=== PATIENT | female | born 1940 | race American Indian/Alaskan Native ===

== ENCOUNTER 2018-02-11 20:57 | Emergency (ER) | payer MEDICARE, OTHER ==
[2018-02-11 20:58] VITALS: BMI 16.6
[2018-02-11 21:06] VITALS: O2SAT 100
--- NOTE | 2018-02-11 21:18 | C.PDOC ---
History Of Present Illness 77 year old female presents to the ED complaining of decreased urination requesting urinary catheter placement until her Urology appointment with Dr. Oshea. Patient denies any fever, chills, nausea, vomiting. Time Seen by Provider: 02/11/18 21:17 Chief Complaint (Nursing): Female Genitourinary History Per: Patient History/Exam Limitations: no limitations Onset/Duration Of Symptoms: Days Current Symptoms Are (Timing): Still Present Severity: Mild Associated Symptoms: Urinary Symptoms. denies: Fever, Nausea, Vomiting Recent travel outside of the [place]: No Abnormal Vaginal Bleeding: No Past Medical History Reviewed: Historical Data, Nursing Documentation, Vital Signs Vital Signs: Last Vital Signs Temp 97.8 F 02/11/18 21:02 Pulse 92 H 02/11/18 21:02 Resp 16 02/11/18 21:02 BP 163/77 H 02/11/18 21:02 Pulse Ox 100 02/11/18 22:38 - Medical History PMH: Anxiety, Asthma (Never been hospitalized), Fractures (FINGER NO SURGERY), Gastritis, HTN, Migraine, Seizures (last 03/06/15) Denies: Chronic Kidney Disease Surgical History: CABG Family History: States: No Known Family Hx - Social History Hx Alcohol Use: No Hx Substance Use: No - Immunization History Hx Influenza Vaccination: Yes Hx Pneumococcal Vaccination: No Review Of Systems Constitutional: Negative for: Fever, Chills Gastrointestinal: Negative for: Nausea, Vomiting Genitourinary: Positive for: Other (Decreased urination ) Physical Exam - Physical Exam Appears: Non-toxic Skin: Warm, Dry Oral Mucosa: Moist Chest: Symmetrical Cardiovascular: Rhythm Regular Respiratory: No Rales, No Rhonchi Gastrointestinal/Abdominal: Tenderness (Suprapubic tenderness ), Distention, No Guarding, No Rebound Back: Normal Inspection, No CVA Tenderness Extremity: Normal ROM Extremity: Bilateral: Normal Color And Temperature Neurological/Psych: Oriented x3 Gait: Steady ED Course And Treatment O2 Sat by Pulse Oximetry: 100 (RA) Pulse Ox Interpretation: Normal Progress Note: I've placed an16 estonian edmonds catheter without difficulty. Patient tolerated procedure well. 600 cc of clear urine drained. Pt feels much better Reevaluation Time: 22:43 Reassessment Condition: Improved Disposition Counseled Patient/Family Regarding: Studies Performed, Diagnosis, Need For Followup - Disposition Referrals: Elham Oshea MD [Staff Provider] - Disposition: HOME/ ROUTINE Disposition Time: 21:18 Condition: FAIR Instructions: How to Care for Your Edmonds Catheter, Female, Edmonds Catheter, Female Forms: [employer] (Urdu) - Clinical Impression Clinical Impression: Urinary retention - Scribe Statement The provider has reviewed the documentation as recorded by the Scribe Kera Gregory
[2018-02-11 23:09] VITALS: BP 144/86; PULSE 82; RESP 20; TEMP 96
== END 2018-02-11 23:08 | disposition home or self-care (01) ==
LOC: C.ER 20:57
DX: R33.9 Retention of urine, unspecified (principal)

== ENCOUNTER 2018-02-12 02:27 | Emergency (ER) | payer MEDICARE, OTHER ==
[2018-02-12 02:27] VITALS: BMI 16.6
[2018-02-12 02:59] VITALS: BP 167/68; PULSE 68; TEMP 97.6; O2SAT 100
--- NOTE | 2018-02-12 03:22 | C.PDOC ---
History Of Present Illness 77 year old female presents to the ED complaining of inability to urinate properly status post placement of edmonds catheter. Patient states she just had a Edmonds catheter placed and the leg bag was not emptied out. She denies any fever , chills, nausea, or vomiting. Time Seen by Provider: 02/12/18 03:22 Chief Complaint (Nursing): Female Genitourinary History Per: Patient History/Exam Limitations: no limitations Onset/Duration Of Symptoms: Hrs Current Symptoms Are (Timing): Still Present Severity: Mild Pain Scale Rating Of: 2 Quality Of Discomfort: Dull Associated Symptoms: Urinary Symptoms. denies: Fever, Chills, Nausea, Vomiting Recent travel outside of the [place]: No Additional History Per: Patient Abnormal Vaginal Bleeding: No Past Medical History Reviewed: Historical Data, Nursing Documentation, Vital Signs Vital Signs: Last Vital Signs Temp 97.6 F 02/12/18 02:43 Pulse 68 02/12/18 02:43 Resp 18 02/12/18 03:39 BP 167/68 H 02/12/18 02:43 Pulse Ox 100 02/12/18 06:11 - Medical History PMH: Anxiety, Asthma (Never been hospitalized), Fractures (FINGER NO SURGERY), Gastritis, HTN, Migraine, Seizures (last 03/06/15) Denies: Chronic Kidney Disease Surgical History: CABG Family History: States: No Known Family Hx - Social History Hx Alcohol Use: No Hx Substance Use: No - Immunization History Hx Influenza Vaccination: Yes Hx Pneumococcal Vaccination: No Review Of Systems Constitutional: Negative for: Fever, Chills Gastrointestinal: Negative for: Nausea, Vomiting Genitourinary: Positive for: Other (Inability to urinate properly) Physical Exam - Physical Exam Appears: Non-toxic, No Acute Distress Skin: Warm, Dry Gastrointestinal/Abdominal: Soft, No Tenderness, No Distention, Other (Edmonds catheter in place and draining ) Back: No CVA Tenderness Extremity: Normal ROM Neurological/Psych: Oriented x3 Gait: Steady ED Course And Treatment O2 Sat by Pulse Oximetry: 100 (RA) Pulse Ox Interpretation: Normal Progress Note: Leg bag was emptied out. Patient feels relieved after procedure and reports feeling better. Disposition Counseled Patient/Family Regarding: Studies Performed, Diagnosis, Need For Followup - Disposition Referrals: Elham Oshea MD [Staff Provider] - Disposition: HOME/ ROUTINE Disposition Time: 03:22 Condition: FAIR Instructions: How to Care for Your Edmonds Catheter, Female Forms: [facility] (Marshallese) - Clinical Impression Clinical Impression: Edmonds catheter problem - Scribe Statement The provider has reviewed the documentation as recorded by the Scribe Kera Gregory All medical record entries made by the Scribe were at my direction and personally dictated by me. I have reviewed the chart and agree that the record accurately reflects my personal performance of the history, physical exam, medical decision making, and the department course for this patient. I have also personally directed, reviewed, and agree with the discharge instructions and disposition.
[2018-02-12] MEDS ORDERED: Magnesium Citrate Oral SOL (300 ml) PO ONE (03:27)
[2018-02-12] MEDS ORDERED: Magnesium Citrate Oral SOL (300 ml) ONE (03:29)
[2018-02-12 03:47] VITALS: RESP 18
== END 2018-02-12 03:39 | disposition home or self-care (01) ==
LOC: C.ER 02:27
DX: T83.091A Other mechanical complication of indwelling urethral catheter, initial encounter (principal); Y84.8 Other medical procedures as the cause of abnormal reaction of the patient, or of later complication, without mention of misadventure at the time of the procedure; Y92.89 Other specified places as the place of occurrence of the external cause

== ENCOUNTER 2018-03-08 05:52 | Day surgery (SDC) | payer MEDICARE, OTHER ==
[2018-02-04 09:40] VITALS: BMI 16.6
[2018-03-08] MEDS ORDERED: Propofol 10 mg/ml Inj (20 ML) ONE (07:41)
[2018-03-08] MEDS ORDERED: cefTRIAXone 1 gm 1 GM/100 ML BAG IVPB ONE (07:43)
[2018-03-08] MEDS ORDERED: Iohexol 240 (50 ml) ONE (07:43)
[2018-03-08] MEDS ORDERED: Gentamicin 160 MG in Sodium Chloride 0.9% 100 ML IVPB ONE (07:45)
[2018-03-08] MEDS ORDERED: Etomidate 20 mg/10ml Inj IV ONE (08:28)
[2018-03-08] MEDS ORDERED: Lactated Ringer's 1,000 ML IV SCH (08:30)
--- NOTE | 2018-03-08 08:34 | PCM.SURG1 ---
Surgeon's Initial Post Op Note - Surgeon's Notes Surgeon: Hydronephrosis. UTI. Retention University Professor: none Type of Anesthesia: General LMA Pre-Operative Diagnosis: Bladder tumor. Pelvic mass Operative Findings: same. Tumor on trigone and bladder floor Post-Operative Diagnosis: same Operation Performed: cysto, attempted rtg pyelogram. TURBT. EUA Specimen/Specimens Removed: bladder tumor Estimated Blood Loss: EBL {In ML}: 10 Blood Products Given: N/A Post-Op Condition: Good Date of Surgery/Procedure: 03/08/18 Time of Surgery/Procedure: 08:34
[2018-03-08 10:55] VITALS: RESP 18
[2018-03-08 11:55] VITALS: BP 117/79; PULSE 89; TEMP 97.7; O2SAT 97
--- NOTE | 2018-03-08 12:34 | RAD ---
Date of service: 03/08/2018 HISTORY: HYDRONEPHROSIS AND UTI COMPARISON: No prior. FINDINGS: BOWEL: Normal bowel gas pattern. Multiple calcifications lateral to the L1-2 intervertebral disc space level left upper quadrant calcifications correspond to left renal vascular calcifications as seen on CT examination of 02/05/2018. No other significant abnormal intra-abdominal calcifications are appreciated. BONES: Normal. OTHER FINDINGS: None. IMPRESSION: No active disease.
--- NOTE | 2018-03-12 03:04 | OP ---
Copied To: Elham Oshea MD Attending MD: Elham Oshea MD PROCEDURE DATE: 03/08/2018 UROLOGY OPERATIVE REPORT PREOPERATIVE DIAGNOSES: Recurrent urinary tract infection, hydronephrosis, and hematuria. POSTOPERATIVE DIAGNOSES: Recurrent urinary tract infection, hydronephrosis, and hematuria. PROCEDURES: Cystoscopy, attempted retrograde pyelogram, transurethral resection of bladder tumor, examination under anesthesia. OPERATING SURGEON: Elham Oshea MD Primary Education Professor film of the abdomen was obtained. The patient was placed in lithotomy position. Genitalia were prepped and draped sterilely. Anesthesia was applied by the anesthesiologist. A 22-Maltese cystoscope sheath was introduced with obturator. The urine was drained and sent for bacteriologic and cytologic examination. The bladder was inspected. The urethra was normal. There was noted to be a bladder tumor involving the floor. There is a necrotic tumor with much debris. These appeared to have some calcifications. The debris was attempted to be irrigated free. The abnormal tissue appeared solid. The lateral caldwell and the anterior wall of the bladder were normal. The floor of the bladder including the trigone was not normal. Attempted performing retrograde pyelogram was performed with ureteral catheter. However, the ureteral orifices could not be identified left side. The cystoscope and sheath were removed. The 26-Maltese continuous flow resectoscope sheath was introduced with obturator. The resectoscope was inserted. The tumor was resected. Still, the ureteral orifices could not be found during the resection. The tumor appeared to have necrotic areas. The tumor perhaps has solid areas. There were no typical papillary bladder tumors identified. The specimens were removed using the Mar syringe as well as the resectoscope loop. Hemostasis was achieved using electrocautery. Hemostasis was complete. Further attempts of inserting ureteral catheters were performed; however, the ureteral orifice could not be identified. The cystoscope was removed. A Camp catheter was inserted. Bladder drainage was clear. Exam under anesthesia was performed. There was evidence of mobile pelvic mass. The mass was approximately 4 cm in size and was palpable and mobile without fixation. The patient was returned to supine position. The patient tolerated the procedure without complication. Elham Oshea MD
== END 2018-03-08 11:55 | disposition home or self-care (01) ==
LOC: C.SDS 05:52
PROVIDERS: ATTEND Urology
DX: C67.0 Malignant neoplasm of trigone of bladder (principal); N13.6 Pyonephrosis; N13.30 Unspecified hydronephrosis; R31.0 Gross hematuria
CPT/HCPCS: 52235; 74018; 88305; C1758; J0696; J1580

== ENCOUNTER 2018-06-07 12:03 | Inpatient (IN) | payer MEDICARE, OTHER ==
[2018-06-07 12:15] VITALS: BMI 15.7
[2018-06-07] MEDS ORDERED: Sodium Chloride 0.9% 500 ML IV ONE ×5 (12:46→16:55)
[2018-06-07] MEDS ORDERED: Lidocaine 2% Jelly (Uro-Jet) TOP ONE ×2 (12:56)
--- NOTE | 2018-06-07 13:25 | C.PDOC ---
History Of Present Illness 77 year old female presents to the ED complaining of dysuria and burning pain at the urethra, ongoing for 1 year but worsening recently. Patient reports PMHx of bladder cancer, and is followed by urologist Dr. Gabrielle Oshea. She denies any fever, vomiting, diarrhea, abdominal pain, or vaginal bleeding. Patient does report small urinary volumes recently. Patient is getting weekly chemotherapy every sunday, last chemo was 05/29/18. PMD- previously Dr. Garcia, currently none urology - Dr. Elham Oshea Hem/onfc - Dr. Proctor Time Seen by Provider: 06/07/18 12:43 Chief Complaint (Nursing): Female Genitourinary History Per: Patient History/Exam Limitations: no limitations Onset/Duration Of Symptoms: Days Current Symptoms Are (Timing): Worse Quality Of Discomfort: Burning Associated Symptoms: Urinary Symptoms Past Medical History Reviewed: Historical Data, Nursing Documentation, Vital Signs Vital Signs: Last Vital Signs Temp 97.5 F L 06/07/18 12:29 Pulse 126 H 06/07/18 12:16 Resp 17 06/07/18 12:16 BP 87/62 L 06/07/18 12:16 Pulse Ox 99 06/07/18 12:16 - Medical History PMH: Anxiety, Asthma, Fractures (FINGER), Gastritis, HTN, Migraine, Seizures Denies: Chronic Kidney Disease Surgical History: CABG Family History: States: Unknown Family Hx - Social History Hx Alcohol Use: No Hx Substance Use: No - Immunization History Hx Tetanus Toxoid Vaccination: No Hx Influenza Vaccination: No Hx Pneumococcal Vaccination: No Review Of Systems Constitutional: Negative for: Fever, Chills Gastrointestinal: Negative for: Vomiting, Abdominal Pain, Diarrhea Genitourinary: Positive for: Dysuria, Other (Burning pain to urethra). Negative for: Vaginal Bleeding Skin: Negative for: Rash Physical Exam - Physical Exam Appears: No Acute Distress, Chronically Ill, Other (Cachectic) Skin: Warm, Dry Head: Atraumatic, Normacephalic Eye(s): bilateral: Normal Inspection, PERRL, EOMI Oral Mucosa: Moist Neck: Normal ROM Chest: Symmetrical Cardiovascular: Rhythm Regular (but tachycardic) Respiratory: No Rales, No Rhonchi, No Wheezing, Other (Lungs clear to auscultation bilaterally) Gastrointestinal/Abdominal: Bowel Sounds (normal), Soft, No Tenderness, No Distention Pelvic: Other (External exam: urethra opening appears swollen and irritated, no vesicular lesions) Extremity: Bilateral: Atraumatic, Normal Color And Temperature Neurological/Psych: Oriented x3, Normal Speech ED Course And Treatment - Laboratory Results Result Diagrams: 06/07/18 14:01 06/07/18 14:01 O2 Sat by Pulse Oximetry: 99 (RA) Pulse Ox Interpretation: Normal - Radiology CXR: Viewed By Me, Read By Radiologist CXR Interpretation: Yes: No Acute Disease - CT Scan/US CT Abd/Pelvis Other Rad Studies (CT/US): Read By Radiologist CT/US Interpretation: Accession No. : [id number]. Patient Name / ID : LUIS GEORGES / [id number]. Exam Date : 06/07/2018 15:31:58 ( Approved ). Study Comment : Sex / Age : F / 77Y. Creator : Alexa Kulkarni. Dictator : Osmin Murillo MD. Rn Training : [employer] Laminator : Osmin Murillo MD. Approver2 : Report Date : 06/07/2018 15:37:48. My Comment : . Date of service: 06/07/2018. PROCEDURE: CT Abdomen and Pelvis without intravenous contrast. HISTORY: PELVIC PAIN, BLADDER CA. COMPARISON: 04/04/2018. TECHNIQUE: Without contrast.. Contrast dose: 0. Radiation dose: Total exam DLP = 165.74 mGy-cm. This CT exam was performed using one or more of the following dose reduction techniques: Automated exposure control, adjustment of the mA and/or kV according to patient size, and/or use of iterative reconstruction technique. FINDINGS: LOWER THORAX: No infiltrate/effusion. Status post CABG. 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 LIVER: Unremarkable. No gross lesion or ductal dilatation. GALLBLADDER AND BILE DUCTS: Status post cholecystectomy. PANCREAS: Unremarkable. No gross lesion or ductal dilatation. SPLEEN: Unremarkable. ADRENALS: Unremarkable. No mass. KIDNEYS AND URETERS: Bilateral hydroureteronephrosis. Point of obstruction likely related to known pelvic mass. VASCULATURE: As above, aneurysmal dilatation of distal thoracic/proximal abdominal aorta. Atherosclerotic calcification of the abdominal aorta. BOWEL: Unremarkable. No obstruction. No gross mural thickening. APPENDIX: Not positive identified. No secondary findings to suggest appendicitis. PERITONEUM: No ascites or pneumoperitoneum. LYMPH NODES: Unremarkable. No enlarged lymph nodes. BLADDER: Diffuse thickening of the bladder wall. Soft tissue mass in the posterior bladder. Posterior border of the bladder is not well demarcated on this noncontrast examination. There is some high attenuation material seen dependently within the urinary bladder, possibly representing blood products. Please correlate with urinalysis. REPRODUCTIVE: Postmenopausal uterus. Because of the presence of this bladder mass the uterus is difficult to distinguish from surrounding soft tissue. There is question of either posterior bladder diverticulum or necrotic mass communicating with the bladder lumen. This is better demonstrated on prior CT of 04/04/2018. there are coarse extra uterine calcifications seen in the inferior adnexal region bilaterally. Unchanged from prior examinations. Uncertain significance. BONES: No acute fracture. OTHER FINDINGS: None. IMPRESSION: Suspected neoplasm posterior wall of urinary bladder with diffuse bladder wall thickening. Question raised of either necrotic mass with communication to bladder lumen or posterior bladder diverticulum. Possible blood products within urinary bladder lumen. Correlate with urinalysis. Bilateral hydroureteronephrosis. 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 Progress Note: Routine blood work, UA, and blood cultures ordered and reviewed. Administered 500mL NS IV fluids and applied topical Lidocaine 2%. Labs reviewed, showing bandemia. Hx of bladder CA, CT abdomen/pelvis ordered. 4:25- Discussed patient with drug counselor, patient's vitals improved and lactate decreased. He is in agreement that patient is now stable for telemetry. Disposition - Disposition Forms: [employer] (South Korean) - Scribe Statement The provider has reviewed the documentation as recorded by the Krista Albarado Provider Attestation: All medical record entries made by the Belgicaibjose d were at my direction and perso juan dictated by me. I have reviewed the chart and agree that the record accurately reflects my personal performance of the history, physical exam, medical decision making, and the department course for this patient. I have also personally directed, reviewed, and agree with the discharge instructions and disposition.
[2018-06-07 14:13] LABS: BASO % 0.5 % (0.0-2.0); EOS % 0.6 % (0.0-4.0); HEMOGLOBIN 8.8 g/dL (11.0-16.0); LYMPH # 0.3 K/uL (1.0-4.3); LYMPH % 26.5 % (20.0-40.0); MEAN CELL VOLUME 77.1 fL (81.0-99.0); MEAN CORPUSCULAR HEMOGLOBIN 24.8 pg (27.0-31.0); MEAN CORPUSCULAR HGB CONC 32.1 g/dL (33.0-37.0); MONO # 0.2 K/uL (0.0-0.8); MONO % 19.5 % (0.0-10.0); NEUT # 0.6 K/uL (1.8-7.0); NEUT % 52.9 % (50.0-75.0); NRBC % 21.6 % (0.0-2.0); RBC 3.54 Mil/uL (3.80-5.20); RED CELL DISTRIBUTION WIDTH 19.6 % (11.5-14.5)
[2018-06-07 14:17] LABS: VENOUS BLOOD GAS BASE EXCESS -4.3 mmol/L (0.0-2.0); VENOUS BLOOD GAS PCO2 42 mmHg (40-60); VENOUS BLOOD GAS PO2 13 mm/Hg (30-55); VENOUS BLOOD PH 7.32 (7.32-7.43)
[2018-06-07 14:17] LABS: PLATELET COUNT 10 K/uL (130-400); WHITE BLOOD COUNT 1.2 K/uL (4.8-10.8)
[2018-06-07] MEDS ORDERED: Vancomycin 1 GM 1 GM/250 ML BAG IV STA (14:17)
[2018-06-07] MEDS ORDERED: Cefepime 1 GM in Sodium Chloride 0.9% 50 ML IVPB ONE (14:18)
[2018-06-07] MEDS ORDERED: Moxifloxacin IV 400mg/250ml NS 400 MG/250 ML BAG IV ONE (14:18)
[2018-06-07 14:20] LABS: ALB/GLOB RATIO 0.9 (1.0-2.1); ALBUMIN 3.5 g/dL (3.5-5.0); CALCIUM 9.4 mg/dl (8.6-10.4)
[2018-06-07 14:24] LABS: INR 1.4
[2018-06-07] MEDS ORDERED: Moxifloxacin IV 400mg/250ml NS 400 MG/250 ML BAG IVPB ONE (14:44)
[2018-06-07 14:47] LABS: SQUAMOUS EPITHIAL 2 /hpf (0-5); URINE BACTERIA RARE (<OCC); URINE BILIRUBIN NEGATIVE (NEGATIVE); URINE BLOOD NEGATIVE (NEGATIVE); URINE CLARITY Clear (Clear); URINE COLOR Yellow (YELLOW); URINE GLUCOSE (UA) NORMAL (Normal); URINE LEUKOCYTE ESTERASE NEG Leu/uL (Negative); URINE PROTEIN 1+ mg/dL (NEGATIVE)
--- NOTE | 2018-06-07 14:57 | RAD ---
Date of service: 06/07/2018 PROCEDURE: CHEST RADIOGRAPH, 1 VIEW HISTORY: possible sepsis COMPARISON: Comparison is made with 02/04/2018 FINDINGS: LUNGS: No evidence of new infiltrate or consolidation in the lungs. PLEURA: No pneumothorax or pleural fluid seen. CARDIOVASCULAR: No aortic atherosclerotic calcification present. Status post sternotomy. OSSEOUS STRUCTURES: No significant abnormalities. VISUALIZED UPPER ABDOMEN: Normal. OTHER FINDINGS: Right-sided Infusaport is seen in place. IMPRESSION: No evidence of acute pulmonary disease.
[2018-06-07 15:39] LABS: LYMPHOCYTE 31 % (20-40); MONOCYTE 18 % (0-10); NEUTROPHIL 34 % (50-75); TOTAL CELLS COUNTED 100
[2018-06-07 15:40] LABS: NUCLEATED RED BLOOD CELL 19 % (0-0)
[2018-06-07 15:41] LABS: BANDS 17 % (0-2); PLATELET ESTIMATE MARKEDLY DECREASED (NORMAL)
[2018-06-07 15:42] LABS: ANISOCYTOSIS SLIGHT; HYPOCHROMIC SLIGHT; POLYCHROMIC SLIGHT; TARGET CELLS SLIGHT
[2018-06-07 15:43] LABS: OVALOCYTES SLIGHT
[2018-06-07 16:11] LABS: VENOUS BLOOD GAS BASE EXCESS -4.9 mmol/L (0.0-2.0); VENOUS BLOOD GAS PCO2 39 mmHg (40-60); VENOUS BLOOD GAS PO2 34 mm/Hg (30-55); VENOUS BLOOD PH 7.33 (7.32-7.43)
--- NOTE | 2018-06-07 16:20 | CT ---
Date of service: 06/07/2018 PROCEDURE: CT Abdomen and Pelvis without intravenous contrast HISTORY: PELVIC PAIN, BLADDER CA COMPARISON: 04/04/2018 TECHNIQUE: Without contrast.. Contrast dose: 0 Radiation dose: Total exam DLP = 165.74 mGy-cm. This CT exam was performed using one or more of the following dose reduction techniques: Automated exposure control, adjustment of the mA and/or kV according to patient size, and/or use of iterative reconstruction technique. FINDINGS: LOWER THORAX: No infiltrate/effusion. Status post CABG. 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 LIVER: Unremarkable. No gross lesion or ductal dilatation. GALLBLADDER AND BILE DUCTS: Status post cholecystectomy PANCREAS: Unremarkable. No gross lesion or ductal dilatation. SPLEEN: Unremarkable. ADRENALS: Unremarkable. No mass. KIDNEYS AND URETERS: Bilateral hydroureteronephrosis. Point of obstruction likely related to known pelvic mass. VASCULATURE: As above, aneurysmal dilatation of distal thoracic/proximal abdominal aorta. Atherosclerotic calcification of the abdominal aorta. BOWEL: Unremarkable. No obstruction. No gross mural thickening. APPENDIX: Not positive identified. No secondary findings to suggest appendicitis. PERITONEUM: No ascites or pneumoperitoneum. LYMPH NODES: Unremarkable. No enlarged lymph nodes. BLADDER: Diffuse thickening of the bladder wall. Soft tissue mass in the posterior bladder. Posterior border of the bladder is not well demarcated on this noncontrast examination. There is some high attenuation material seen dependently within the urinary bladder, possibly representing blood products. Please correlate with urinalysis. REPRODUCTIVE: Postmenopausal uterus. Because of the presence of this bladder mass the uterus is difficult to distinguish from surrounding soft tissue. There is question of either posterior bladder diverticulum or necrotic mass communicating with the bladder lumen. This is better demonstrated on prior CT of 04/04/2018. there are coarse extra uterine calcifications seen in the inferior adnexal region bilaterally. Unchanged from prior examinations. Uncertain significance. BONES: No acute fracture. OTHER FINDINGS: None. IMPRESSION: Suspected neoplasm posterior wall of urinary bladder with diffuse bladder wall thickening. Question raised of either necrotic mass with communication to bladder lumen or posterior bladder diverticulum. Possible blood products within urinary bladder lumen. Correlate with urinalysis. Bilateral hydroureteronephrosis. 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 At
[2018-06-07] MEDS ORDERED: Sodium Chloride 0.9% 1,500 ML IV ONE (16:33)
[2018-06-07] MEDS ORDERED: Lidocaine 2% Jelly (Uro-Jet) ONE (17:59)
[2018-06-07] MEDS: Meropenem 500 MG in Sodium Chloride 0.9% 100 ML IVPB SCH (22:07)
--- NOTE | 2018-06-07 23:54 | CP.PCM.HP ---
Past Patient History - Infectious Disease Hx of Infectious Diseases: None - Past Medical History & Family History Past Medical History?: Yes - Past Social History Smoking Status: Former Smoker - CARDIAC Hx Hypertension: Yes - PULMONARY Hx Asthma: Yes - NEUROLOGICAL Hx Migraine: Yes Hx Seizures: Yes - HEENT Hx HEENT Problems: Yes Hx Cataracts: Yes (BILAT IOL) - RENAL Hx Chronic Kidney Disease: No - ENDOCRINE/METABOLIC Hx Endocrine Disorders: No - HEMATOLOGICAL/ONCOLOGICAL Hx Blood Disorders: Yes Hx Cancer: Yes (CERVICAL 4 YRS.AGO) Hx Chemotherapy: Yes (ALSO RADIATION) - INTEGUMENTARY Hx Dermatological Problems: No - MUSCULOSKELETAL/RHEUMATOLOGICAL Hx Falls: Yes Hx Fractures: Yes (FINGER) - GASTROINTESTINAL Hx Gastritis: Yes - GENITOURINARY/GYNECOLOGICAL Hx Genitourinary Disorders: Yes Hx Cervical Cancer: Yes Hx Reproductive Disorders: Yes Hx Urinary Tract Infection: Yes - PSYCHIATRIC Hx Anxiety: Yes Hx Substance Use: No - SURGICAL HISTORY Hx Coronary Artery Bypass Graft: Yes - ANESTHESIA Hx Malignant Hyperthermia: No Meds Allergies/Adverse Reactions: Allergies Allergy/AdvReac Type Severity Reaction Status Date / Time shellfish derived Allergy RASH Verified 06/07/18 12:45 Results - Vital Signs Recent Vital Signs: Last Vital Signs Temp 97.5 F L 06/07/18 16:27 Pulse 115 H 06/07/18 20:00 Resp 18 06/07/18 16:27 BP 139/85 06/07/18 16:27 Pulse Ox 99 06/07/18 16:39 - Labs Result Diagrams: 06/07/18 14:01 06/07/18 14:01 Labs: Laboratory Results - last 24 hr 06/07/18 06/07/18 06/07/18 14:01 14:01 14:03 WBC 1.2 L* D RBC 3.54 L Hgb 8.8 L Hct 27.3 L MCV 77.1 L D MCH 24.8 L MCHC 32.1 L RDW 19.6 H Plt Count 10 L* D MPV 11.0 Neut % (Auto) 52.9 Lymph % (Auto) 26.5 [place] % (Auto) 19.5 H Eos % (Auto) 0.6 Baso % (Auto) 0.5 Neut # (Auto) 0.6 L Lymph # (Auto) 0.3 L [place] # (Auto) 0.2 Eos # (Auto) 0.0 Baso # (Auto) 0.0 Neutrophils % (Manual) 34 L Band Neutrophils % 17 H* Lymphocytes % (Manual) 31 Monocytes % (Manual) 18 H Nucleated RBC % 19 H Platelet Estimate Markedly decreased L Polychromasia Slight Hypochromasia (manual) Slight Anisocytosis (manual) Slight Target Cells Slight Ovalocytes Slight PT 15.0 H INR 1.4 APTT 24 pO2 VBG pH VBG pCO2 VBG HCO3 VBG Total CO2 VBG O2 Sat (Calc) VBG Base Excess VBG Potassium Glucose Lactate Crit Value Called To Crit Value Called By Crit Value Read Back Blood Gas Notified Time Sodium 140 Potassium 4.0 Chloride 103 Carbon Dioxide 21 L Anion Gap 20 BUN 48 H Creatinine 1.6 H Est GFR ( Amer) 38 Est GFR (Non-Af Amer) 31 Random Glucose 129 H Calcium 9.4 Total Bilirubin 0.6 AST 15 ALT 18 Alkaline Phosphatase 175 H D Total Protein 7.4 Albumin 3.5 Globulin 3.9 Albumin/Globulin Ratio 0.9 L Venous Blood Potassium Urine Color Urine Clarity Urine pH Ur Specific [place] Urine Protein Urine Glucose (UA) Urine Ketones Urine Blood Urine Nitrate Urine Bilirubin Urine Urobilinogen Ur Leukocyte Esterase Urine WBC (Auto) Urine RBC (Auto) Ur Squamous Epith Cells Urine Bacteria 06/07/18 06/07/18 06/07/18 14:13 14:36 16:09 WBC RBC Hgb Hct MCV MCH MCHC RDW Plt Count MPV Neut % (Auto) Lymph % (Auto) [place] % (Auto) Eos % (Auto) Baso % (Auto) Neut # (Auto) Lymph # (Auto) [place] # (Auto) Eos # (Auto) Baso # (Auto) Neutrophils % (Manual) Band Neutrophils % Lymphocytes % (Manual) Monocytes % (Manual) Nucleated RBC % Platelet Estimate Polychromasia Hypochromasia (manual) Anisocytosis (manual) Target Cells Ovalocytes PT INR APTT pO2 13 L 34 VBG pH 7.32 7.33 VBG pCO2 42 39 L VBG HCO3 19.3 20.1 VBG Total CO2 22.9 21.8 L VBG O2 Sat (Calc) 11.1 L 56.6 VBG Base Excess -4.3 L -4.9 L VBG Potassium 3.7 3.8 Glucose 125 H 103 Lactate 4.9 H* 3.3 H Crit Value Called To jayla Martini Crit Value Called By Casimiro steve [employer] Crit Value Read Back Y Blood Gas Notified Time 1416 Sodium 143.0 139.0 Potassium Chloride 107.0 107.0 Carbon Dioxide Anion Gap BUN Creatinine Est GFR ( Amer) Est GFR (Non-Af Amer) Random Glucose Calcium Total Bilirubin AST ALT Alkaline Phosphatase Total Protein Albumin Globulin Albumin/Globulin Ratio Venous Blood Potassium 3.7 3.8 Urine Color Yellow Urine Clarity Clear Urine pH 7.0 Ur Specific [place] 1.018 Urine Protein 1+ H Urine Glucose (UA) Normal Urine Ketones Negative Urine Blood Negative Urine Nitrate Negative Urine Bilirubin Negative Urine Urobilinogen 2.0 H Ur Leukocyte Esterase Neg Urine WBC (Auto) 2 Urine RBC (Auto) 1 Ur Squamous Epith Cells 2 Urine Bacteria Rare
--- NOTE | 2018-06-08 05:21 | HP ---
CHIEF COMPLAINT: Generalized weakness and dysuria x1 day. HISTORY OF PRESENT ILLNESS: This is a 77-year-old female with history of hypertension. She was diagnosed with urinary bladder cancer, and she has been on chemotherapy by Dr. Proctor in [place] for urinary bladder cancer, and she is being followed up by Urology. The patient is compliant with her diet, medication and followup. The patient was complaining of dysuria, frequency of urination, and hematuria. It was feasible along with weakness, palpitation, dizziness, and dysuria. She was brought into the emergency room. She has abdominal pain. She has pelvic discomfort, and she feels like a mass sticking out from her genital area. She denies any rectal bleeding, hemoptysis, melena, or hematochezia. She denies any joint pain or hip pain. She denies any shortness of breath. She has palpitation, weakness, and dizziness. She has dyspnea on exertion. She is able to walk minimally. She has been getting chemotherapy three weeks on Sunday, and her last chemo was on 05/29/2018. There is no history of cough, sore throat or runny nose. She denies any bruising or skin rash. She denies any history of chest pain. She denies any history of tingling, numbness, or paresthesias of the feet. PAST MEDICAL HISTORY: Positive for urinary bladder cancer and hypertension. SURGICAL HISTORY: She is status post CABG. SOCIAL HISTORY: She is a nonsmoker, non-EtOH user. CURRENT MEDICATIONS: She is on metoprolol and aspirin. PHYSICAL EXAMINATION: GENERAL: An elderly female, in no acute distress. She is able to answer questions. VITAL SIGNS: Blood pressure 139/85, pulse 98, respiratory rate 18, temperature 97.5. SKIN: Senile turgor, pale. No bruises. No purpura. HEENT: Atraumatic and normocephalic. Positive pallor. Negative jaundice. Extraocular movements are intact. NECK: Supple. No JVD. No lymph node. No thyromegaly. CHEST WALL: Bilateral symmetrical expansion. No masses. LUNGS: Bilaterally clear. No rales. No rhonchi. CARDIOVASCULAR SYSTEM: PMI in fifth intercostal space. S1 and S2 plus S3 positive. ABDOMEN: Soft. Nontender. Bowel sounds are positive. RECTAL: No masses. No bleed. PELVIC: Refused. EXTREMITIES: No clubbing, cyanosis or edema. CENTRAL NERVOUS SYSTEM: Awake,alert and oriented x3. Cranial nerves II through XII are normal. Power 5/5 x4. Plantars are downgoing. ASSESSMENT: 1. Urinary tract infection, rule out septicemia. 2. Dehydration. 3. Pancytopenia which seems to be chemotherapy induced. 4. Urinary bladder cancer. PLAN: Admit. Detailed orders are written. Seen and examined. Jensen Hernandez MD
[2018-06-08] MEDS: Meropenem 500 MG in Sodium Chloride 0.9% 100 ML IVPB SCH ×3 (05:30→21:39)
[2018-06-08] MEDS: Metoprolol Succinate 25 mg XL Tab PO SCH (09:25)
[2018-06-08 18:00] LABS: MEAN CELL VOLUME 78.3 fL (81.0-99.0); MEAN CORPUSCULAR HEMOGLOBIN 24.9 pg (27.0-31.0); MEAN CORPUSCULAR HGB CONC 31.8 g/dL (33.0-37.0); MEAN PLATELET VOLUME 9.8 fL (7.2-11.7); RBC 3.22 Mil/uL (3.80-5.20); RED CELL DISTRIBUTION WIDTH 19.7 % (11.5-14.5)
[2018-06-08 18:06] LABS: WHITE BLOOD COUNT 5.6 K/uL (4.8-10.8)
[2018-06-08] MEDS: Vitamins A & D Oint UD Foilpak TOP PRN (18:11)
[2018-06-08 18:16] LABS: CALCIUM 8.7 mg/dl (8.6-10.4)
--- NOTE | 2018-06-08 20:22 | CP.PCM.PN ---
Subjective - Subjective Subjective: dictated Objective - Vital Signs/Intake and Output Vital Signs (last 24 hours): Temp Pulse Resp BP Pulse Ox 97.5 F L 97 H 20 134/95 H 100 06/08/18 15:45 06/08/18 16:00 06/08/18 15:45 06/08/18 15:45 06/08/18 15:45 Intake and Output: 06/08/18 06/09/18 18:59 06:59 Intake Total 600 Balance 600 - Medications Medications: Current Medications Heparin Sodium (Porcine) (Heparin) 5,000 units SC Q12 [facility] Last Admin: 06/08/18 13:11 Dose: 5,000 units Meropenem 500 mg/ Sodium (Chloride) 100 mls @ 100 mls/hr IVPB Q8H [facility]; Protocol Last Admin: 06/08/18 14:31 Dose: 100 mls/hr Metoprolol Succinate (Toprol Xl) 25 mg PO DAILY [facility] Last Admin: 06/08/18 09:25 Dose: 25 mg Morphine Sulfate (Morphine) 2 mg IVP Q6H PRN PRN Reason: Pain, moderate (4-7) Last Admin: 06/08/18 13:09 Dose: 2 mg Vitamin A (Vitamin A & D Oint Ud Foilpak) 1 ea TOP BID PRN PRN Reason: Dry skin Last Admin: 06/08/18 18:11 Dose: 1 ea - Labs Labs: 06/08/18 17:51 06/08/18 17:51 PT 15.0 SECONDS (9.7-12.2) H 06/07/18 14:03 INR 1.4 06/07/18 14:03 APTT 24 SECONDS (21-34) 06/07/18 14:03
--- NOTE | 2018-06-08 21:33 | CP.PCM.CON ---
History of Present Illness - History of Present Illness History of Present Illness: Covering Dr. Proctor. 77 year old female with a history of bladder cancer diagnosed 4 years ago s/p radiation with recent initiation on chemotherapy presenting with pelvic pain, pancytopenia, and possible sepsis. The patient notes to feeling more weak since starting chemotherapy. She began to experience burning with urination and pelv ic pain which prompted her to come to the ER. She has been receiving antibiotics and reports to feeling better. She is due for chemotherapy this Sunday in [place]. Past medical history: HTN, bladder cancer Past surgical history: Portacath Family history: Sister had cancer Social history: Former tobacco, alcohol abuse Allergies: Shellfish Review of systems: All remaining review of systems including HEENT, cardiovascular, respiratory, gastrointestinal, genitourinary, musculoskeletal, dermatologic, neurologic, and psychiatric are negative unless mentioned in the HPI. Past Patient History - Infectious Disease Hx of Infectious Diseases: None - Past Medical History & Family History Past Medical History?: Yes - Past Social History Smoking Status: Former Smoker - CARDIAC Hx Hypertension: Yes - PULMONARY Hx Asthma: Yes - NEUROLOGICAL Hx Migraine: Yes Hx Seizures: Yes - HEENT Hx HEENT Problems: Yes Hx Cataracts: Yes (BILAT IOL) - RENAL Hx Chronic Kidney Disease: No - ENDOCRINE/METABOLIC Hx Endocrine Disorders: No - HEMATOLOGICAL/ONCOLOGICAL Hx Blood Disorders: Yes Hx Cancer: Yes (CERVICAL 4 YRS.AGO) Hx Chemotherapy: Yes (ALSO RADIATION) - INTEGUMENTARY Hx Dermatological Problems: No - MUSCULOSKELETAL/RHEUMATOLOGICAL Hx Falls: Yes Hx Fractures: Yes (FINGER) - GASTROINTESTINAL Hx Gastritis: Yes - GENITOURINARY/GYNECOLOGICAL Hx Genitourinary Disorders: Yes Hx Cervical Cancer: Yes Hx Reproductive Disorders: Yes Hx Urinary Tract Infection: Yes - PSYCHIATRIC Hx Anxiety: Yes Hx Substance Use: No - SURGICAL HISTORY Hx Coronary Artery Bypass Graft: Yes - ANESTHESIA Hx Malignant Hyperthermia: No Meds Allergies/Adverse Reactions: Allergies Allergy/AdvReac Type Severity Reaction Status Date / Time shellfish derived Allergy RASH Verified 06/07/18 12:45 - Medications Medications: Current Medications Heparin Sodium (Porcine) (Heparin) 5,000 units SC Q12 [facility] Last Admin: 06/08/18 21:23 Dose: Not Given Meropenem 500 mg/ Sodium (Chloride) 100 mls @ 100 mls/hr IVPB Q8H [facility]; Protocol Last Admin: 06/08/18 14:31 Dose: 100 mls/hr Metoprolol Succinate (Toprol Xl) 25 mg PO DAILY [facility] Last Admin: 06/08/18 09:25 Dose: 25 mg Morphine Sulfate (Morphine) 2 mg IVP Q6H PRN PRN Reason: Pain, moderate (4-7) Last Admin: 06/08/18 13:09 Dose: 2 mg Vitamin A (Vitamin A & D Oint Ud Foilpak) 1 ea TOP BID PRN PRN Reason: Dry skin Last Admin: 06/08/18 18:11 Dose: 1 ea Physical Exam - Constitutional Appears: Cachectic - Head Exam Head Exam: ATRAUMATIC - Eye Exam Eye Exam: Normal appearance - ENT Exam ENT Exam: Mucous Membranes Dry - Respiratory Exam Respiratory Exam: NORMAL BREATHING PATTERN - Cardiovascular Exam Cardiovascular Exam: +S1, +S2 - GI/Abdominal Exam GI & Abdominal Exam: Normal Bowel Sounds - Extremities Exam Extremities exam: Positive for: normal inspection - Neurological Exam Neurological exam: Oriented x3 - Psychiatric Exam Psychiatric exam: Normal Affect, Normal Mood - Skin Skin Exam: Warm Results - Vital Signs Recent Vital Signs: Last Vital Signs Temp 97.5 F L 06/08/18 15:45 Pulse 97 H 06/08/18 16:00 Resp 20 06/08/18 15:45 BP 134/95 H 06/08/18 15:45 Pulse Ox 100 06/08/18 15:45 - Labs Result Diagrams: 06/08/18 17:51 06/08/18 17:51 Labs: Laboratory Results - last 24 hr 06/08/18 06/08/18 17:51 17:51 WBC 5.6 D RBC 3.22 L Hgb 8.0 L Hct 25.2 L MCV 78.3 L MCH 24.9 L MCHC 31.8 L RDW 19.7 H Plt Count 18 L* D MPV 9.8 Sodium 140 Potassium 3.9 Chloride 110 H Carbon Dioxide 18 L Anion Gap 16 BUN 38 H Creatinine 1.4 H Est GFR ( Amer) 44 Est GFR (Non-Af Amer) 36 Random Glucose 83 Calcium 8.7 Assessment & Plan (1) Pancytopenia Assessment and Plan: secondary to chemotherapy transfusion support PRN goal hgb above 8 and plt above 10,000 Status: Acute (2) Bladder cancer Assessment and Plan: scheduled for chemotherapy Sunday in [place] with Dr. Pagan will likely need to hold chemotherapy until clear of infection and blood counts improved; will notify Dr. Pagan Thank you for this interesting consult. Status: Acute
--- NOTE | 2018-06-09 01:53 | PN ---
DATE: 06/08/2018 SUBJECTIVE: The patient is afebrile. Septic workup is pending. Blood cultures are negative. No nausea or vomiting. Thrombocytopenic. PHYSICAL EXAMINATION VITAL SIGNS: Blood pressure 134/95, pulse 90, respiratory rate 20, temperature 97.5. LUNGS: Clear. No rales. No rhonchi. CARDIOVASCULAR SYSTEM: S1 and S2 regular. ABDOMEN: Soft. Nontender. Bowel sounds are positive. ASSESSMENT: 1. Pancytopenia, chemotherapy induced. 2. Urinary tract infection, rule out septicemia. 3. Urinary bladder cancer, on chemotherapy. PLAN: Continue current medication. Monitor the patient. Jensen Hernandez MD
[2018-06-09] MEDS: Meropenem 500 MG in Sodium Chloride 0.9% 100 ML IVPB SCH ×2 (05:18→19:30)
[2018-06-09 08:20] LABS: BASO % 0.5 % (0.0-2.0); EOS % 0.8 % (0.0-4.0); HEMOGLOBIN 7.3 g/dL (11.0-16.0); LYMPH # 0.6 K/uL (1.0-4.3); MEAN CELL VOLUME 76.2 fL (81.0-99.0); MEAN CORPUSCULAR HEMOGLOBIN 25.4 pg (27.0-31.0); MEAN CORPUSCULAR HGB CONC 33.3 g/dL (33.0-37.0); MEAN PLATELET VOLUME 10.8 fL (7.2-11.7); MONO # 0.4 K/uL (0.0-0.8); MONO % 8.9 % (0.0-10.0); NEUT # 3.6 K/uL (1.8-7.0); NEUT % 76.8 % (50.0-75.0); NRBC % 6.7 % (0.0-2.0); RBC 2.89 Mil/uL (3.80-5.20); RED CELL DISTRIBUTION WIDTH 19.5 % (11.5-14.5); WHITE BLOOD COUNT 4.7 K/uL (4.8-10.8)
[2018-06-09 08:36] LABS: ALB/GLOB RATIO 0.8 (1.0-2.1); ALBUMIN 2.4 g/dL (3.5-5.0); CALCIUM 7.7 mg/dl (8.6-10.4)
[2018-06-09] MEDS: Metoprolol Succinate 25 mg XL Tab PO SCH (09:20)
[2018-06-09] MEDS: Potassium Chloride 20 mEq/15 ml LIQ UD PO SCH ×2 (11:26→16:20)
--- NOTE | 2018-06-09 17:55 | CP.PCM.CON ---
History of Present Illness - History of Present Illness History of Present Illness: 77 year old female with a history of bladder CA diagnosed 4 years ago is admitted to s/p radiation and recent chemotherapy Admitted c/o pelvic pain, pancytopenia, and possible sepsis. Referred for ID evaluation of this Past medical history: HTN, bladder cancer Past surgical history: Portacath Family history: CA Social history: Former tobacco, alcohol abuse Allergies: Shellfish Review of Systems - Review of Systems Systems not reviewed;Unavailable: Altered Mental Status - Constitutional Constitutional: As Per HPI - EENT Eyes: absent: As Per HPI, Blind Spots, Blurred Vision, Change in Vision, Decreased Night Vision, Diplopia, Discharge, Dry Eye, Exophthalmos, Floaters, Irritation, Itchy Eyes, Loss of Peripheral Vision, Pain, Photophobia, Requires Corrective Lenses, Sees Flashes, Spots in Vision, Tunnel Vision, Other Visual Disturbances, Loss of Vision, Other Ears: absent: As Per HPI, Decreased Hearing, Ear Discharge, Ear Pain, Tinnitus, Abnormal Hearing, Disequilibrium, Dizziness, Other - Breasts Breasts: absent: As Per HPI, Change in Shape, Mass, Pain, Nipple Discharge, Nipple Inversion, Skin Changes, Swelling, Other - Cardiovascular Cardiovascular: absent: As Per HPI, Acrocyanosis, Chest Pain, Chest Pain at Rest, Chest Pain with Activity, Claudication, Diaphoresis, Dyspnea, Dyspnea on Exertion, Edema, Irregular Heart Rhythm, Pain Radiating to Arm/Neck/Jaw, Leg Edema, Leg Ulcers, Lightheadedness, Orthopnea, Palpitations, Paroxysmal Noct urnal Dyspnea, Pedal Edema, Radiating Pain, Rapid Heart Rate, Slow Heart Rate, Syncope, Other - Respiratory Respiratory: absent: As Per HPI, Cough, Dyspnea, Hemoptysis, Dyspnea on Exertion, Wheezing, Snoring, Stridor, Pain on Inspiration, Chest Congestion, Excessive Mucous Production, Change in Mucous Color, Pain with Coughing, Other - Gastrointestinal Gastrointestinal: absent: As Per HPI, Abdominal Pain, Belching, Bloating, Change in Bowel Habits, Change in Stool Character, Coffee Ground Emesis, Constipation, Cramping, Diarrhea, Dyspepsia, Dysphagia, Early Satiety, Excessive Flatus, Fecal Incontinence, Heartburn, Hematemesis, Hematochezia, Loose Stools, Melena, Nausea, Odynophagia, Temesmus, Vomiting, Other - Genitourinary Genitourinary: As Per HPI - Reproductive: Female Reproductive:Female: absent: As Per HPI, Amenorrhea, Amenorrhea/ Control, Currently Menstual, Cycle <21 Days, Cycle >35 Days, Cycle Variable, Menses 1-7 Days, Menses >/= 8 Days, Menses Variable, Cycle > 4 Weeks Between, No Menses for 6 Months, Heavy Menses, Light Menses, Normal Menses, Spotting Between Cycles, S/P Hysterectomy, Menopausal, Post Menopausal, Premenarche, Abnormal Vaginal Bleeding, Dysmenorrhea, Dyspareunia, Genital Lesions, Genital Pruritis, Pelvic Pain, Prolapse Symptoms, Sexual Dysfunction, Vaginal Discharge, Vaginal Dryness, Vaginal Odor, Vaginal Pruritis, Other - Menstruation Menstruation: absent: As Per HPI, Amenorrhea, Amenorrhea/ Control, Currently Menstual, Cycle <21 Days, Cycle >35 Days, Cycle Variable, Menses 1-7 Days, Menses >/= 8 Days, Menses Variable, Cycle > 4 Weeks Between, No Menses for 6 Months, Heavy Menses, Light Menses, Normal Menses, Spotting Between Cycles, S/P Hysterectomy, Menopausal, Post Menopausal, Premenarche, Abnormal Vaginal Bleeding, Dysmenorrhea, Other - Musculoskeletal Musculoskeletal: As Per HPI - Integumentary Integumentary: absent: As Per HPI, Acne, Alopecia, Bleeding Lesions, Change in Hair, Change in Nails, Change in Pigmentation, Changing Lesions, Dry Skin, Eryt kim, Furuncle, Hirsutism, Lesions, New Lesions, Non-Healing Lesions, Photosensitivity, Pruritus, Rash, Skin Pain, Skin Ulcer, Sores, Striae, Swelling, Unusual Bruising, Wounds, Jaundice, Other - Neurological Neurological: absent: As Per HPI, Abnormal Gait, Abnormal Hearing, Abnormal Movements, Abnormal Speech, Behavioral Changes, Burning Sensations, Confusion, Convulsions, Disequilibrium, Dizziness, Numbness, Focal Weakness, Frequent Falls, Headaches, Lack of Coordination, Loss of Vision, Memory Loss, Paresthesias, Radicular Pain, Restless Legs, Sensory Deficit, Syncope, Tingling, Tremor, Vertigo, Weakness, Other Visual Disturbances, Other - Psychiatric Psychiatric: absent: As Per HPI, Abnormal Sleep Pattern, Anhedonia, Anxiety, Auditory Hallucinations, Behavioral Changes, Change in Appetite, Change in Libido, Confusion, Depression, Difficulty Concentrating, Hallucinations, Homicidal Ideation, Hopelessness, Irritability, Memory Loss, Mood Swings, Panic Attacks, Paranoia, Suicidal Ideation, Visual Hallucinations, Tactile Hallucinations, Other - Endocrine Endocrine: absent: As Per HPI, Change in Body Appearance, Change in Libido, Cold Intolorance, Deepening of Voice, Excessive Sweating, Fatigue, Flushing, Heat Intolorance, Increase in Ring/Shoe/Hat Size, Palpitations, Polydipsia, Polyphagia, Polyuria, Other - Hematologic/Lymphatic Hematologic: absent: As Per HPI, Easy Bleeding, Easy Bruising, Lymphadenopathy, Other Past Patient History - Infectious Disease Hx of Infectious Diseases: None - Past Medical History & Family History Past Medical History?: Yes - Past Social History Smoking Status: Former Smoker - CARDIAC Hx Hypertension: Yes - PULMONARY Hx Asthma: Yes - NEUROLOGICAL Hx Migraine: Yes Hx Seizures: Yes - HEENT Hx HEENT Problems: Yes Hx Cataracts: Yes (BILAT IOL) - RENAL Hx Chronic Kidney Disease: No - ENDOCRINE/METABOLIC Hx Endocrine Disorders: No - HEMATOLOGICAL/ONCOLOGICAL Hx Blood Disorders: Yes Hx Cancer: Yes (CERVICAL 4 YRS.AGO) Hx Chemotherapy: Yes (ALSO RADIATION) - INTEGUMENTARY Hx Dermatological Problems: No - MUSCULOSKELETAL/RHEUMATOLOGICAL Hx Falls: Yes Hx Fractures: Yes (FINGER) - GASTROINTESTINAL Hx Gastritis: Yes - GENITOURINARY/GYNECOLOGICAL Hx Genitourinary Disorders: Yes Hx Cervical Cancer: Yes Hx Reproductive Disorders: Yes Hx Urinary Tract Infection: Yes - PSYCHIATRIC Hx Anxiety: Yes Hx Substance Use: No - SURGICAL HISTORY Hx Coronary Artery Bypass Graft: Yes - ANESTHESIA Hx Malignant Hyperthermia: No Meds Allergies/Adverse Reactions: Allergies Allergy/AdvReac Type Severity Reaction Status Date / Time shellfish derived Allergy RASH Verified 06/07/18 12:45 - Medications Medications: Current Medications Heparin Sodium (Porcine) (Heparin) 5,000 units SC Q12 [facility] Last Admin: 06/09/18 09:20 Dose: 5,000 units Meropenem 500 mg/ Sodium (Chloride) 100 mls @ 100 mls/hr IVPB Q8H [facility]; Protocol Metoprolol Succinate (Toprol Xl) 25 mg PO DAILY [facility] Last Admin: 06/09/18 09:20 Dose: 25 mg Morphine Sulfate (Morphine) 2 mg IVP Q6H PRN PRN Reason: Pain, moderate (4-7) Last Admin: 06/09/18 08:34 Dose: 2 mg Vitamin A (Vitamin A & D Oint Ud Foilpak) 1 ea TOP BID PRN PRN Reason: Dry skin Last Admin: 06/08/18 18:11 Dose: 1 ea Physical Exam - Constitutional Appears: Non-toxic, Chronically Ill - Head Exam Head Exam: ATRAUMATIC, NORMAL INSPECTION, NORMOCEPHALIC - Eye Exam Eye Exam: PERRL. absent: Scleral icterus Pupil Exam: NORMAL ACCOMODATION - ENT Exam ENT Exam: Mucous Membranes Dry, Normal External Ear Exam - Neck Exam Neck exam: Negative for: Lymphadenopathy, Thyromegaly - Respiratory Exam Respiratory Exam: Decreased Breath Sounds, Prolonged Expiratory Phase, Rhonchi - Cardiovascular Exam Cardiovascular Exam: REGULAR RHYTHM, +S1, +S2 - GI/Abdominal Exam GI & Abdominal Exam: Diminished Bowel Sounds, Distended, Tenderness. absent: Guarding - Rectal Exam Rectal Exam: Deferred - Exam Exam: NORMAL INSPECTION - Extremities Exam Extremities exam: Positive for: pedal pulses present. Negative for: calf tenderness, pedal edema, tenderness - Back Exam Back exam: absent: CVA tenderness (L), CVA tenderness (R), rash noted - Neurological Exam Neurological exam: Alert, CN II-XII Intact, Oriented x3 - Psychiatric Exam Psychiatric exam: Depressed - Skin Skin Exam: Dry Results - Vital Signs Recent Vital Signs: Last Vital Signs Temp 98 F 06/09/18 16:12 Pulse 95 H 06/09/18 16:12 Resp 20 06/09/18 16:12 BP 135/85 06/09/18 16:12 Pulse Ox 99 06/09/18 07:45 - Labs Result Diagrams: 06/09/18 08:10 06/09/18 08:10 Labs: Laboratory Results - last 24 hr 06/08/18 06/08/18 06/09/18 17:51 17:51 08:10 WBC 5.6 D 4.7 L RBC 3.22 L 2.89 L Hgb 8.0 L 7.3 L Hct 25.2 L 22.0 L MCV 78.3 L 76.2 L D MCH 24.9 L 25.4 L MCHC 31.8 L 33.3 RDW 19.7 H 19.5 H Plt Count 18 L* D 28 L* D MPV 9.8 10.8 Neut % (Auto) 76.8 H Lymph % (Auto) 13.0 L [place] % (Auto) 8.9 Eos % (Auto) 0.8 Baso % (Auto) 0.5 Neut # (Auto) 3.6 Lymph # (Auto) 0.6 L [place] # (Auto) 0.4 Eos # (Auto) 0.0 Baso # (Auto) 0.0 Differential Comment Sodium 140 Potassium 3.9 Chloride 110 H Carbon Dioxide 18 L Anion Gap 16 BUN 38 H Creatinine 1.4 H Est GFR ( Amer) 44 Est GFR (Non-Af Amer) 36 Random Glucose 83 Calcium 8.7 Total Bilirubin AST ALT Alkaline Phosphatase Total Protein Albumin Globulin Albumin/Globulin Ratio Blood Type Antibody Screen 06/09/18 06/09/18 08:10 11:09 WBC RBC Hgb Hct MCV MCH MCHC RDW Plt Count MPV Neut % (Auto) Lymph % (Auto) [place] % (Auto) Eos % (Auto) Baso % (Auto) Neut # (Auto) Lymph # (Auto) [place] # (Auto) Eos # (Auto) Baso # (Auto) Differential Comment Sodium 139 Potassium 2.8 L Chloride 109 H Carbon Dioxide 19 L Anion Gap 14 BUN 34 H Creatinine 1.3 H Est GFR ( Amer) 48 Est GFR (Non-Af Amer) 40 Random Glucose 81 Calcium 7.7 L Total Bilirubin 0.3 AST 18 ALT 21 Alkaline Phosphatase 107 Total Protein 5.5 L Albumin 2.4 L D Globulin 3.1 Albumin/Globulin Ratio 0.8 L Blood Type O POSITIVE Antibody Screen Negative Assessment & Plan (1) Bladder cancer Status: Acute (2) Pancytopenia Status: Acute - Assessment and Plan (Free Text) Assessment: 77 yo female with hx of bladder Ca s/p FRT and recent chemo 'admitted with pelvic pain fever and pancytopenia Started on empiric IV antibiotics cont nutritional support , hydration, blood products and IV antibiotics
--- NOTE | 2018-06-09 19:54 | CP.PCM.PN ---
Subjective - Date & Time of Evaluation Date of Evaluation: 06/09/18 Time of Evaluation: 17:00 - Subjective Subjective: Feeling better but weak. Objective - Vital Signs/Intake and Output Vital Signs (last 24 hours): Temp Pulse Resp BP Pulse Ox 98 F 95 H 20 135/85 100 06/09/18 16:12 06/09/18 16:12 06/09/18 16:12 06/09/18 16:12 06/09/18 15:45 Intake and Output: 06/09/18 06/10/18 18:59 06:59 Intake Total 1075 Balance 1075 - Medications Medications: Current Medications Heparin Sodium (Porcine) (Heparin) 5,000 units SC Q12 [facility] Last Admin: 06/09/18 09:20 Dose: 5,000 units Meropenem 500 mg/ Sodium (Chloride) 100 mls @ 100 mls/hr IVPB Q8H [facility]; Protocol Metoprolol Succinate (Toprol Xl) 25 mg PO DAILY [facility] Last Admin: 06/09/18 09:20 Dose: 25 mg Morphine Sulfate (Morphine) 2 mg IVP Q6H PRN PRN Reason: Pain, moderate (4-7) Last Admin: 06/09/18 08:34 Dose: 2 mg Vitamin A (Vitamin A & D Oint Ud Foilpak) 1 ea TOP BID PRN PRN Reason: Dry skin Last Admin: 06/08/18 18:11 Dose: 1 ea - Labs Labs: 06/09/18 08:10 06/09/18 08:10 PT 15.0 SECONDS (9.7-12.2) H 06/07/18 14:03 INR 1.4 06/07/18 14:03 APTT 24 SECONDS (21-34) 06/07/18 14:03 - Head Exam Head Exam: ATRAUMATIC - Eye Exam Eye Exam: Normal appearance - ENT Exam ENT Exam: Mucous Membranes Dry - Respiratory Exam Respiratory Exam: NORMAL BREATHING PATTERN - Cardiovascular Exam Cardiovascular Exam: +S1, +S2 - GI/Abdominal Exam GI & Abdominal Exam: Normal Bowel Sounds Assessment and Plan (1) Pancytopenia Assessment & Plan: secondary to chemotherapy PRBC transfusion Status: Acute (2) Bladder cancer Assessment & Plan: outpatient treatment Status: Acute
--- NOTE | 2018-06-09 21:44 | CP.PCM.PN ---
Subjective - Subjective Subjective: dictated Objective - Vital Signs/Intake and Output Vital Signs (last 24 hours): Temp Pulse Resp BP Pulse Ox 98 F 95 H 20 135/85 100 06/09/18 16:12 06/09/18 16:12 06/09/18 16:12 06/09/18 16:12 06/09/18 15:45 Intake and Output: 06/09/18 06/10/18 18:59 06:59 Intake Total 1075 Balance 1075 - Medications Medications: Current Medications Heparin Sodium (Porcine) (Heparin) 5,000 units SC Q12 [facility] Last Admin: 06/09/18 21:19 Dose: Not Given Meropenem 500 mg/ Sodium (Chloride) 100 mls @ 100 mls/hr IVPB Q8H [facility]; Protocol Last Admin: 06/09/18 19:30 Dose: 100 mls/hr Metoprolol Succinate (Toprol Xl) 25 mg PO DAILY [facility] Last Admin: 06/09/18 09:20 Dose: 25 mg Morphine Sulfate (Morphine) 2 mg IVP Q6H PRN PRN Reason: Pain, moderate (4-7) Last Admin: 06/09/18 08:34 Dose: 2 mg Vitamin A (Vitamin A & D Oint Ud Foilpak) 1 ea TOP BID PRN PRN Reason: Dry skin Last Admin: 06/08/18 18:11 Dose: 1 ea - Labs Labs: 06/09/18 08:10 06/09/18 08:10 PT 15.0 SECONDS (9.7-12.2) H 06/07/18 14:03 INR 1.4 06/07/18 14:03 APTT 24 SECONDS (21-34) 06/07/18 14:03
[2018-06-10] MEDS: Meropenem 500 MG in Sodium Chloride 0.9% 100 ML IVPB SCH ×3 (01:58→18:09)
--- NOTE | 2018-06-10 02:48 | PN ---
DATE: 06/09/2018 SUBJECTIVE: The patient is afebrile. Her blood cultures are negative. No nausea or vomiting. PHYSICAL EXAMINATION: VITAL SIGNS: Blood pressure 135/85, pulse 95, respiratory rate 20, temperature 98. LUNGS: Clear. No rales. No rhonchi. CARDIOVASCULAR SYSTEM: S1 and S2 are regular. ABDOMEN: Soft. ASSESSMENT: 1. Chronic kidney disease. Continue antibiotics. 2. Hypokalemia, on KCl supplementation. 3. Urinary tract infection, rule out septicemia. 4. Pancytopenia due to chemotherapy. 5. Urinary bladder tumor. PLAN: Continue current medications. Potassium supplementation. Antibiotic. Wound and septic workup. Jensen Hernandez MD
[2018-06-10 08:24] LABS: MEAN CORPUSCULAR HEMOGLOBIN 25.9 pg (27.0-31.0); MEAN CORPUSCULAR HGB CONC 32.7 g/dL (33.0-37.0); MEAN PLATELET VOLUME 9.1 fL (7.2-11.7); RBC 3.82 Mil/uL (3.80-5.20); RED CELL DISTRIBUTION WIDTH 19.8 % (11.5-14.5)
[2018-06-10 08:29] LABS: HEMOGLOBIN 9.9 g/dL (11.0-16.0); WHITE BLOOD COUNT 7.5 K/uL (4.8-10.8)
[2018-06-10 08:30] LABS: MEAN CELL VOLUME 79.3 fL (81.0-99.0)
[2018-06-10 08:37] LABS: CALCIUM 8.3 mg/dl (8.6-10.4)
[2018-06-10] MEDS: Metoprolol Succinate 25 mg XL Tab PO SCH (09:45)
--- NOTE | 2018-06-10 12:13 | CP.PCM.PN ---
Subjective - Date & Time of Evaluation Date of Evaluation: 06/10/18 Time of Evaluation: 08:00 - Subjective Subjective: less pain no fever Objective - Vital Signs/Intake and Output Vital Signs (last 24 hours): Temp Pulse Resp BP Pulse Ox 98.0 F 94 H 20 119/80 100 06/10/18 07:00 06/10/18 07:53 06/10/18 07:00 06/10/18 09:46 06/10/18 07:00 - Medications Medications: Current Medications Heparin Sodium (Porcine) (Heparin) 5,000 units SC Q12 [facility] Last Admin: 06/10/18 09:45 Dose: 5,000 units Meropenem 500 mg/ Sodium (Chloride) 100 mls @ 100 mls/hr IVPB Q8H [facility]; Protocol Last Admin: 06/10/18 09:45 Dose: 100 mls/hr Metoprolol Succinate (Toprol Xl) 25 mg PO DAILY [facility] Last Admin: 06/10/18 09:45 Dose: 25 mg Morphine Sulfate (Morphine) 2 mg IVP Q6H PRN PRN Reason: Pain, moderate (4-7) Last Admin: 06/09/18 08:34 Dose: 2 mg Vitamin A (Vitamin A & D Oint Ud Foilpak) 1 ea TOP BID PRN PRN Reason: Dry skin Last Admin: 06/08/18 18:11 Dose: 1 ea - Labs Labs: 06/10/18 08:14 06/10/18 08:14 PT 15.0 SECONDS (9.7-12.2) H 06/07/18 14:03 INR 1.4 06/07/18 14:03 APTT 24 SECONDS (21-34) 06/07/18 14:03 - Constitutional Appears: Non-toxic, Cachectic, Chronically Ill - Head Exam Head Exam: NORMOCEPHALIC - Eye Exam Eye Exam: absent: Scleral icterus - ENT Exam ENT Exam: Mucous Membranes Dry - Neck Exam Neck Exam: absent: Lymphadenopathy - Respiratory Exam Respiratory Exam: Decreased Breath Sounds - Cardiovascular Exam Cardiovascular Exam: REGULAR RHYTHM - GI/Abdominal Exam GI & Abdominal Exam: Distended - Rectal Exam Rectal Exam: Deferred - Exam Exam: NORMAL INSPECTION - Extremities Exam Extremities Exam: absent: Pedal Edema - Back Exam Back Exam: absent: CVA tenderness (L), CVA tenderness (R) - Neurological Exam Neurological Exam: Alert, Awake Assessment and Plan (1) Bladder cancer Status: Acute (2) Pancytopenia Status: Acute - Assessment and Plan (Free Text) Assessment: cont iv rx Plan: await urine c/s
--- NOTE | 2018-06-10 15:03 | PCM.URO ---
Urology Progress Note - Objective Lab Studies: Reviewed (gu dx: bladder cancer/ gu plans : to be discussed) Lab Results Last 24 Hours: Laboratory Results - last 24 hr 06/07/18 06/10/18 06/10/18 14:01 08:14 08:14 WBC 7.5 D RBC 3.82 Hgb 9.9 L D Hct 30.3 L MCV 79.3 L D MCH 25.9 L MCHC 32.7 L RDW 19.8 H Plt Count 43 L MPV 9.1 Differential Comment Smear Path Review Sodium 139 Potassium 3.7 Chloride 109 H Carbon Dioxide 21 L Anion Gap 13 BUN 27 H Creatinine 1.3 H Est GFR ( Amer) 48 Est GFR (Non-Af Amer) 40 Random Glucose 96 Calcium 8.3 L Intake & Output: Intake & Output 06/09/18 06/10/18 06/10/18 18:59 06:59 18:59 Intake Total 1075 540 Balance 1075 540 Intake: Oral 600 540 Blood Product 475 Red Blood Cells Cpd As1 325 Lr Unit [id number] Other: # Voids Urine, Voided 3 400 # Bowel Movements 1 2 Vital Signs: Vital Signs - 24 hr 06/09/18 06/09/18 06/09/18 15:45 16:12 23:30 Temperature 97.6 F 98 F Pulse Rate 89 95 H 103 H Respiratory 20 20 Rate Blood Pressure 144/97 H 135/85 O2 Sat by Pulse 100 Oximetry 06/10/18 06/10/18 06/10/18 00:00 07:00 07:53 Temperature 97.8 F 98.0 F Pulse Rate 94 H 109 H 94 H Respiratory 20 20 Rate Blood Pressure 141/79 161/107 H O2 Sat by Pulse 100 100 Oximetry 06/10/18 06/10/18 09:46 12:46 Temperature Pulse Rate 99 H Respiratory Rate Blood Pressure 119/80 O2 Sat by Pulse Oximetry
[2018-06-10 15:13] LABS: SQUAMOUS EPITHIAL 4 /hpf (0-5); URINE BACTERIA FEW (<OCC); URINE BILIRUBIN NEGATIVE (NEGATIVE); URINE BLOOD 3+ (NEGATIVE); URINE CLARITY Hazy (Clear); URINE COLOR Yellow (YELLOW); URINE GLUCOSE (UA) NORMAL (Normal); URINE LEUKOCYTE ESTERASE 3+ Leu/uL (Negative); URINE PROTEIN 1+ mg/dL (NEGATIVE); URINE UROBILINOGEN NORMAL mg/dL (0.2-1.0)
--- NOTE | 2018-06-10 21:53 | CP.PCM.PN ---
Subjective - Subjective Subjective: dictated Objective - Vital Signs/Intake and Output Vital Signs (last 24 hours): Temp Pulse Resp BP Pulse Ox 98.0 F 97 H 20 119/80 100 06/10/18 07:00 06/10/18 16:00 06/10/18 07:00 06/10/18 09:46 06/10/18 07:00 Intake and Output: 06/10/18 06/11/18 18:59 06:59 Intake Total 540 Balance 540 - Medications Medications: Current Medications Heparin Sodium (Porcine) (Heparin) 5,000 units SC Q12 [facility] Last Admin: 06/10/18 21:05 Dose: 5,000 units Meropenem 500 mg/ Sodium (Chloride) 100 mls @ 100 mls/hr IVPB Q8H [facility]; Protocol Last Admin: 06/10/18 18:09 Dose: 100 mls/hr Metoprolol Succinate (Toprol Xl) 25 mg PO DAILY [facility] Last Admin: 06/10/18 09:45 Dose: 25 mg Morphine Sulfate (Morphine) 2 mg IVP Q6H PRN PRN Reason: Pain, moderate (4-7) Last Admin: 06/09/18 08:34 Dose: 2 mg Vitamin A (Vitamin A & D Oint Ud Foilpak) 1 ea TOP BID PRN PRN Reason: Dry skin Last Admin: 06/08/18 18:11 Dose: 1 ea - Labs Labs: 06/10/18 08:14 06/10/18 08:14 PT 15.0 SECONDS (9.7-12.2) H 06/07/18 14:03 INR 1.4 06/07/18 14:03 APTT 24 SECONDS (21-34) 06/07/18 14:03
--- NOTE | 2018-06-11 02:19 | PN ---
DATE: 06/10/2018 SUBJECTIVE: The patient is afebrile. No shortness of breath. Decreased dysuria. Her pancytopenia is improving. Her appetite is improving. No chest pain. No diarrhea. PHYSICAL EXAMINATION: VITAL SIGNS: Blood pressure 119/80, pulse 99, respiratory rate 16, and temperature 98.7. LUNGS: Clear. No rales. No rhonchi. CARDIOVASCULAR SYSTEM: S1, S2 regular. ABDOMEN: Soft, nontender. Bowel sounds are positive. ASSESSMENT: 1. Urinary bladder cancer. 2. Pancytopenia due to chemotherapy induced, which is improving. 3. Urinary tract infection, rule out septicemia. PLAN: Repeat urine culture. Blood cultures are negative. Continue antibiotics. UA repeat while positive as well. We will monitor the patient in the meantime until the patient improves. Jensen Hernandez MD
[2018-06-11] MEDS: Meropenem 500 MG in Sodium Chloride 0.9% 100 ML IVPB SCH ×3 (02:58→17:39)
[2018-06-11] MEDS: Metoprolol Succinate 25 mg XL Tab PO SCH (10:30)
--- NOTE | 2018-06-11 22:04 | CP.PCM.PN ---
Subjective - Date & Time of Evaluation Date of Evaluation: 06/11/18 Time of Evaluation: 09:00 - Subjective Subjective: iv rx in progress afebrile Objective - Vital Signs/Intake and Output Vital Signs (last 24 hours): Temp Pulse Resp BP Pulse Ox 97.7 F 102 H 18 135/91 H 100 06/11/18 15:05 06/11/18 16:00 06/11/18 15:05 06/11/18 15:05 06/11/18 15:05 Intake and Output: 06/11/18 06/12/18 18:59 06:59 Intake Total 480 Balance 480 - Medications Medications: Current Medications Meropenem 500 mg/ Sodium (Chloride) 100 mls @ 100 mls/hr IVPB Q8H [facility]; Protocol Last Admin: 06/11/18 17:39 Dose: 100 mls/hr Metoprolol Succinate (Toprol Xl) 25 mg PO DAILY [facility] Last Admin: 06/11/18 10:30 Dose: 25 mg Morphine Sulfate (Morphine) 2 mg IVP Q6H PRN PRN Reason: Pain, moderate (4-7) Last Admin: 06/09/18 08:34 Dose: 2 mg Vitamin A (Vitamin A & D Oint Ud Foilpak) 1 ea TOP BID PRN PRN Reason: Dry skin Last Admin: 06/08/18 18:11 Dose: 1 ea - Labs Labs: 06/10/18 08:14 06/10/18 08:14 PT 15.0 SECONDS (9.7-12.2) H 06/07/18 14:03 INR 1.4 06/07/18 14:03 APTT 24 SECONDS (21-34) 06/07/18 14:03 - Constitutional Appears: Non-toxic, Cachectic, Chronically Ill - Head Exam Head Exam: NORMOCEPHALIC - Eye Exam Eye Exam: absent: Scleral icterus - ENT Exam ENT Exam: Mucous Membranes Dry - Respiratory Exam Respiratory Exam: Decreased Breath Sounds - Cardiovascular Exam Cardiovascular Exam: REGULAR RHYTHM - GI/Abdominal Exam GI & Abdominal Exam: Distended, Soft - Rectal Exam Rectal Exam: absent: Deferred - Exam Exam: NORMAL INSPECTION - Extremities Exam Extremities Exam: absent: Full ROM - Neurological Exam Neurological Exam: Alert, Awake Assessment and Plan (1) Bladder cancer Status: Acute (2) Pancytopenia Status: Acute
--- NOTE | 2018-06-12 00:34 | CP.PCM.PN ---
Subjective - Subjective Subjective: dictated Objective - Vital Signs/Intake and Output Vital Signs (last 24 hours): Temp Pulse Resp BP Pulse Ox 97.6 F 98 H 20 147/83 100 06/11/18 23:15 06/11/18 23:15 06/11/18 23:15 06/11/18 23:15 06/11/18 23:15 Intake and Output: 06/11/18 06/12/18 18:59 06:59 Intake Total 480 500 Balance 480 500 - Medications Medications: Current Medications Meropenem 500 mg/ Sodium (Chloride) 100 mls @ 100 mls/hr IVPB Q8H [facility]; Protocol Last Admin: 06/11/18 17:39 Dose: 100 mls/hr Metoprolol Succinate (Toprol Xl) 25 mg PO DAILY [facility] Last Admin: 06/11/18 10:30 Dose: 25 mg Morphine Sulfate (Morphine) 2 mg IVP Q6H PRN PRN Reason: Pain, moderate (4-7) Last Admin: 06/09/18 08:34 Dose: 2 mg Vitamin A (Vitamin A & D Oint Ud Foilpak) 1 ea TOP BID PRN PRN Reason: Dry skin Last Admin: 06/08/18 18:11 Dose: 1 ea - Labs Labs: 06/10/18 08:14 06/10/18 08:14 PT 15.0 SECONDS (9.7-12.2) H 06/07/18 14:03 INR 1.4 06/07/18 14:03 APTT 24 SECONDS (21-34) 06/07/18 14:03
[2018-06-12] MEDS: Meropenem 500 MG in Sodium Chloride 0.9% 100 ML IVPB SCH ×3 (03:25→18:15)
[2018-06-12] MEDS: Metoprolol Succinate 25 mg XL Tab PO SCH (10:42)
--- NOTE | 2018-06-12 10:55 | PN ---
DATE: 06/12/2018 SUBJECTIVE: Patient Devendra is afebrile, feeling better, decreased abdominal pain with no nausea or vomiting, tolerating antibiotics. PHYSICAL EXAMINATION: VITAL SIGNS: Blood pressure 147/83, pulse 98, respiratory rate 20, and temperature 97.6. LUNGS: Clear. CVS: S1 and S2 regular. ABDOMEN: Soft. ASSESSMENT: 1. Status post pancytopenia, resolving. 2. Urinary tract infection. 3. Urinary bladder cancer. 4. Hypertension. PLAN: Continue antibiotics. Repeat urine in the a.m. Monitor the patient. Jensen Hernandez MD
[2018-06-12 14:10] LABS: BASO % 0.2 % (0.0-2.0); HEMOGLOBIN 10.2 g/dL (11.0-16.0); LYMPH # 1.3 K/uL (1.0-4.3); MEAN CELL VOLUME 79.5 fL (81.0-99.0)
[2018-06-12 14:18] LABS: EOS % 0.3 % (0.0-4.0); LYMPH % 11.9 % (20.0-40.0); MEAN CORPUSCULAR HEMOGLOBIN 25.7 pg (27.0-31.0); MEAN CORPUSCULAR HGB CONC 32.3 g/dL (33.0-37.0); MEAN PLATELET VOLUME 10.4 fL (7.2-11.7); MONO # 1.6 K/uL (0.0-0.8); MONO % 15.1 % (0.0-10.0); NEUT # 7.7 K/uL (1.8-7.0); NEUT % 72.5 % (50.0-75.0); NRBC % 0.7 % (0.0-2.0); RBC 3.98 Mil/uL (3.80-5.20); RED CELL DISTRIBUTION WIDTH 20.4 % (11.5-14.5); WHITE BLOOD COUNT 10.7 K/uL (4.8-10.8)
[2018-06-12 14:22] LABS: CALCIUM 7.9 mg/dl (8.6-10.4)
[2018-06-12] MEDS ORDERED: Potassium Chloride 20 mEq ER Tab PO ONE (18:00)
[2018-06-12 20:40] LABS: SQUAMOUS EPITHIAL 2 /hpf (0-5); URINE BACTERIA MOD (<OCC); URINE BILIRUBIN NEGATIVE (NEGATIVE); URINE BLOOD 1+ (NEGATIVE); URINE CLARITY Turbid (Clear); URINE COLOR Yellow (YELLOW); URINE GLUCOSE (UA) NORMAL (Normal); URINE LEUKOCYTE ESTERASE 2+ Leu/uL (Negative); URINE PROTEIN 3+ mg/dL (NEGATIVE); URINE UROBILINOGEN NORMAL mg/dL (0.2-1.0); WBC CLUMPS MANY /hpf
--- NOTE | 2018-06-12 21:49 | CP.PCM.PN ---
Subjective - Subjective Subjective: dictated Objective - Vital Signs/Intake and Output Vital Signs (last 24 hours): Temp Pulse Resp BP Pulse Ox 97.7 F 100 H 20 133/89 100 06/12/18 15:07 06/12/18 16:00 06/12/18 15:07 06/12/18 15:07 06/12/18 15:07 - Medications Medications: Current Medications Meropenem 500 mg/ Sodium (Chloride) 100 mls @ 100 mls/hr IVPB Q8H [facility]; Protocol Last Admin: 06/12/18 18:15 Dose: 100 mls/hr Metoprolol Succinate (Toprol Xl) 25 mg PO DAILY [facility] Last Admin: 06/12/18 10:42 Dose: 25 mg Morphine Sulfate (Morphine) 2 mg IVP Q6H PRN PRN Reason: Pain, moderate (4-7) Last Admin: 06/09/18 08:34 Dose: 2 mg Vitamin A (Vitamin A & D Oint Ud Foilpak) 1 ea TOP BID PRN PRN Reason: Dry skin Last Admin: 06/08/18 18:11 Dose: 1 ea - Labs Labs: 06/12/18 13:58 06/12/18 13:58 PT 15.0 SECONDS (9.7-12.2) H 06/07/18 14:03 INR 1.4 06/07/18 14:03 APTT 24 SECONDS (21-34) 06/07/18 14:03
--- NOTE | 2018-06-12 22:41 | CP.PCM.PN ---
Subjective - Date & Time of Evaluation Date of Evaluation: 06/12/18 Time of Evaluation: 07:00 - Subjective Subjective: afebrile alert nad 'less pain Objective - Vital Signs/Intake and Output Vital Signs (last 24 hours): Temp Pulse Resp BP Pulse Ox 97.7 F 100 H 20 133/89 100 06/12/18 15:07 06/12/18 16:00 06/12/18 15:07 06/12/18 15:07 06/12/18 15:07 - Medications Medications: Current Medications Meropenem 500 mg/ Sodium (Chloride) 100 mls @ 100 mls/hr IVPB Q8H [facility]; Protocol Last Admin: 06/12/18 18:15 Dose: 100 mls/hr Metoprolol Succinate (Toprol Xl) 25 mg PO DAILY [facility] Last Admin: 06/12/18 10:42 Dose: 25 mg Morphine Sulfate (Morphine) 2 mg IVP Q6H PRN PRN Reason: Pain, moderate (4-7) Last Admin: 06/09/18 08:34 Dose: 2 mg Vitamin A (Vitamin A & D Oint Ud Foilpak) 1 ea TOP BID PRN PRN Reason: Dry skin Last Admin: 06/08/18 18:11 Dose: 1 ea - Labs Labs: 06/12/18 13:58 06/12/18 13:58 PT 15.0 SECONDS (9.7-12.2) H 06/07/18 14:03 INR 1.4 06/07/18 14:03 APTT 24 SECONDS (21-34) 06/07/18 14:03 - Constitutional Appears: Non-toxic - Head Exam Head Exam: NORMOCEPHALIC - Eye Exam Eye Exam: EOMI - ENT Exam ENT Exam: Mucous Membranes Dry - Neck Exam Neck Exam: Full ROM, Normal Inspection. absent: Lymphadenopathy, Meningismus, Tenderness, Thyromegaly - Respiratory Exam Respiratory Exam: Decreased Breath Sounds - Cardiovascular Exam Cardiovascular Exam: REGULAR RHYTHM, +S1, +S2 - GI/Abdominal Exam GI & Abdominal Exam: Distended, Soft - Rectal Exam Rectal Exam: Deferred - Exam Exam: NORMAL INSPECTION - Extremities Exam Extremities Exam: absent: Calf Tenderness - Back Exam Back Exam: absent: CVA tenderness (L), CVA tenderness (R) - Neurological Exam Neurological Exam: Alert, Awake, CN II-XII Intact - Psychiatric Exam Psychiatric exam: Depressed Assessment and Plan (1) Bladder cancer Status: Acute (2) Pancytopenia Status: Acute - Assessment and Plan (Free Text) Assessment: empiric rx for febrile neutropenia and UTI to continue
--- NOTE | 2018-06-13 01:38 | PN ---
DATE: 06/12/2018 SUBJECTIVE: The patient with pending urine cultures. She is afebrile, on antibiotics. No nausea or vomiting. PHYSICAL EXAMINATION: VITAL SIGNS: Blood pressure 133/89, pulse 90, respiratory rate 20, and temperature 97.7. LUNGS: Clear. CARDIOVASCULAR SYSTEM: S1 and S2 regular. ABDOMEN: Soft. ASSESSMENT: 1. Urinary tract infection, pending sensitivity, patient with Gram-positive cocci. 2. Urinary bladder cancer. 3. Hypertension. 4. Pancytopenia due to chemotherapy. PLAN: Continue IV antibiotics. Wait for identity and sensitivity and adjust antibiotics. The patient is being seen by ID. Jensen Hernandez MD
[2018-06-13] MEDS: Meropenem 500 MG in Sodium Chloride 0.9% 100 ML IVPB SCH (01:53)
[2018-06-13] MEDS: Metoprolol Succinate 25 mg XL Tab PO SCH (10:30)
[2018-06-13] MEDS: Linezolid 600 mg in D5W 300 ml 600 MG/300 ML BAG IVPB SCH (17:01)
--- NOTE | 2018-06-13 20:31 | CARD ---
APPROVED REPORT Date of service: 06/13/2018 EXAM: Two-dimensional and M-mode echocardiogram with Doppler and color Doppler. RISK FACTORS Hypertension 2D DIMENSIONS IVSd1.0 (0.7-1.1cm)LVDd3.5 (3.9-5.9cm) PWd0.9 (0.7-1.1cm)LA Tzvidb73 (18-58mL) LVDs2.5 (2.5-4.0cm)FS (%) 26.5 % LVEF (%)52.9 (>50%)LVEF (Rosa's)52.70 % IVC0.00 cm M-Mode DIMENSIONS LVEF (%)50 (>50%) Aortic Valve AoV Peak Bkuaeyhe985.9cm/sAoV VTI40.5cmAO Peak GR.19mmHg AO Mean GR.10mmHg Mitral Valve MV E Pmyfcuif50.4cm/sMV A Sabzxshn92.8cm/sE/A ratio0.3 TDI Lateral E' Peak V4.74cm/sMedial E' Peak V2.67cm/sE/Lateral E'7.0 E/Medial E'12.5 Tricuspid Valve TR Peak Hinolvqg463yz/sTR Peak Gr.67zqYsRDDF80roWn LEFT VENTRICLE The left ventricle is normal size. There is normal left ventricular wall thickness. Left ventricle systolic function is normal. The Ejection Fraction is 50-55%. There is normal LV segmental wall motion. Tissue Doppler imaging reveals abnormal left ventricular diastolic dysfunction. RIGHT VENTRICLE The right ventricle is normal size. There is normal right ventricular wall thickness. The right ventricular systolic function is normal. ATRIA The left atrium size is normal. The right atrium size is normal. The atrial septum is aneurysmal. AORTIC VALVE The aortic valve is normal in structure. No aortic regurgitation is present. There is no aortic valvular stenosis. MITRAL VALVE Mitral annular calcification is moderate. There is no evidence of mitral valve prolapse. There is no mitral valve stenosis. Mitral regurgitation is mild. TRICUSPID VALVE The tricuspid valve is normal in structure. There is moderate tricuspid regurgitation. Right ventricular systolic pressure is estimated at 40-50 mmHg. There is moderate pulmonary hypertension. PULMONIC VALVE The pulmonic valve is not well visualized. There is mild pulmonic valvular regurgitation. GREAT VESSELS The aortic root is normal in size. PERICARDIAL EFFUSION There is no significant pericardial effusion. <Conclusion> Left ventricle systolic function is normal. The Ejection Fraction is 50-55%. Diastolic dysfunction. No aortic regurgitation is present. Mitral regurgitation is mild. There is moderate tricuspid regurgitation. There is moderate pulmonary hypertension. There is mild pulmonic valvular regurgitation.
--- NOTE | 2018-06-13 22:20 | CARD ---
APPROVED REPORT Date of service: 06/12/2018 EKG Measurement Heart [id number] <Conclusion> Sinus rhythm with premature atrial complexes with aberrant conduction ST & T wave abnormality, consider anterior ischemia Abnormal ECG
--- NOTE | 2018-06-13 22:28 | CARD ---
APPROVED REPORT Date of service: 06/07/2018 EKG Measurement Heart [id number] <Conclusion> Sinus tachycardia Nonspecific T wave abnormality Abnormal ECG
--- NOTE | 2018-06-13 23:42 | CP.PCM.PN ---
Subjective - Subjective Subjective: DICTATED Objective - Vital Signs/Intake and Output Vital Signs (last 24 hours): Temp Pulse Resp BP Pulse Ox 98.2 F 86 20 163/112 H 100 06/13/18 15:15 06/13/18 15:15 06/13/18 15:15 06/13/18 15:15 06/13/18 15:15 Intake and Output: 06/13/18 06/14/18 18:59 06:59 Intake Total 300 Balance 300 - Medications Medications: Current Medications Linezolid (Zyvox 600mg/300ml D5w) 600 mg in 300 mls @ 200 mls/hr IVPB Q12H [facility]; Protocol Stop: 06/18/18 17:01 Last Admin: 06/13/18 17:01 Dose: 200 mls/hr Metoprolol Succinate (Toprol Xl) 25 mg PO DAILY [facility] Last Admin: 06/13/18 10:30 Dose: 25 mg Morphine Sulfate (Morphine) 2 mg IVP Q6H PRN PRN Reason: Pain, moderate (4-7) Last Admin: 06/13/18 22:20 Dose: 2 mg Vitamin A (Vitamin A & D Oint Ud Foilpak) 1 ea TOP BID PRN PRN Reason: Dry skin Last Admin: 06/08/18 18:11 Dose: 1 ea - Labs Labs: 06/12/18 13:58 06/12/18 13:58 PT 15.0 SECONDS (9.7-12.2) H 06/07/18 14:03 INR 1.4 06/07/18 14:03 APTT 24 SECONDS (21-34) 06/07/18 14:03
[2018-06-14] MEDS: Linezolid 600 mg in D5W 300 ml 600 MG/300 ML BAG IVPB SCH ×2 (04:36→17:30)
[2018-06-14] MEDS: Metoprolol Succinate 25 mg XL Tab PO SCH (09:35)
[2018-06-14] MEDS: Vitamins A & D Oint UD Foilpak TOP PRN (09:36)
--- NOTE | 2018-06-14 18:09 | CP.PCM.PN ---
Subjective - Date & Time of Evaluation Date of Evaluation: 06/14/18 Time of Evaluation: 09:00 - Subjective Subjective: VRE urine now isolated iv rx in progress Objective - Vital Signs/Intake and Output Vital Signs (last 24 hours): Temp Pulse Resp BP Pulse Ox 97.9 F 85 20 142/90 100 06/14/18 16:00 06/14/18 16:00 06/14/18 16:00 06/14/18 16:00 06/14/18 16:00 Intake and Output: 06/14/18 06/14/18 06:59 18:59 Intake Total 300 380 Balance 300 380 - Medications Medications: Current Medications Linezolid (Zyvox 600mg/300ml D5w) 600 mg in 300 mls @ 200 mls/hr IVPB Q12H [facility]; Protocol Stop: 06/18/18 17:01 Last Admin: 06/14/18 17:30 Dose: 200 mls/hr Metoprolol Succinate (Toprol Xl) 25 mg PO DAILY [facility] Last Admin: 06/14/18 09:35 Dose: 25 mg Morphine Sulfate (Morphine) 2 mg IVP Q6H PRN PRN Reason: Pain, moderate (4-7) Last Admin: 06/14/18 13:27 Dose: 2 mg Vitamin A (Vitamin A & D Oint Ud Foilpak) 1 ea TOP BID PRN PRN Reason: Dry skin Last Admin: 06/14/18 09:36 Dose: 1 ea - Labs Labs: 06/12/18 13:58 06/12/18 13:58 PT 15.0 SECONDS (9.7-12.2) H 06/07/18 14:03 INR 1.4 06/07/18 14:03 APTT 24 SECONDS (21-34) 06/07/18 14:03 - Constitutional Appears: Non-toxic - Head Exam Head Exam: NORMOCEPHALIC - Eye Exam Eye Exam: absent: Scleral icterus - ENT Exam ENT Exam: Mucous Membranes Dry - Neck Exam Neck Exam: absent: Lymphadenopathy - Respiratory Exam Respiratory Exam: Decreased Breath Sounds - Cardiovascular Exam Cardiovascular Exam: REGULAR RHYTHM - GI/Abdominal Exam GI & Abdominal Exam: Distended - Rectal Exam Rectal Exam: Deferred Assessment and Plan (1) Bladder cancer Status: Acute (2) Pancytopenia Status: Acute
--- NOTE | 2018-06-14 22:37 | CP.PCM.PN ---
Subjective - Subjective Subjective: dictated Objective - Vital Signs/Intake and Output Vital Signs (last 24 hours): Temp Pulse Resp BP Pulse Ox 97.9 F 85 20 142/90 100 06/14/18 16:00 06/14/18 16:00 06/14/18 16:00 06/14/18 16:00 06/14/18 16:00 Intake and Output: 06/14/18 06/15/18 18:59 06:59 Intake Total 380 Balance 380 - Medications Medications: Current Medications Linezolid (Zyvox 600mg/300ml D5w) 600 mg in 300 mls @ 200 mls/hr IVPB Q12H [facility]; Protocol Stop: 06/18/18 17:01 Last Admin: 06/14/18 17:30 Dose: 200 mls/hr Metoprolol Succinate (Toprol Xl) 25 mg PO DAILY [facility] Last Admin: 06/14/18 09:35 Dose: 25 mg Morphine Sulfate (Morphine) 2 mg IVP Q6H PRN PRN Reason: Pain, moderate (4-7) Last Admin: 06/14/18 13:27 Dose: 2 mg Vitamin A (Vitamin A & D Oint Ud Foilpak) 1 ea TOP BID PRN PRN Reason: Dry skin Last Admin: 06/14/18 09:36 Dose: 1 ea - Labs Labs: 06/12/18 13:58 06/12/18 13:58 PT 15.0 SECONDS (9.7-12.2) H 06/07/18 14:03 INR 1.4 06/07/18 14:03 APTT 24 SECONDS (21-34) 06/07/18 14:03
--- NOTE | 2018-06-15 02:41 | PN ---
DATE: 06/14/2018 SUBJECTIVE: The patient is afebrile. She is on Zyvox. No nausea or vomiting. PHYSICAL EXAMINATION VITAL SIGNS: Blood pressure 142/90, pulse 81, respiratory rate 20, temperature 97.9. LUNGS: Bilaterally clear. No rale or rhonchi. CARDIOVASCULAR SYSTEM: S1 and S2 regular. ABDOMEN: Soft, nontender, bowel sounds are positive. ASSESSMENT AND PLAN: 1. 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 2. Urinary bladder tumor. 3. Pancytopenia due to chemotherapy. 4. Hypokaliemia. PLAN: Continue IV Zyvox. Repeat labs tomorrow morning, repeat urinalysis after another day or two. Monitor the patient. Jensen Hernandez MD
[2018-06-15] MEDS: Linezolid 600 mg in D5W 300 ml 600 MG/300 ML BAG IVPB SCH ×2 (04:10→16:25)
[2018-06-15 07:20] LABS: HEMOGLOBIN 9.4 g/dL (11.0-16.0); MEAN CELL VOLUME 79.9 fL (81.0-99.0); MEAN CORPUSCULAR HEMOGLOBIN 26.3 pg (27.0-31.0); MEAN CORPUSCULAR HGB CONC 32.9 g/dL (33.0-37.0); MEAN PLATELET VOLUME 9.3 fL (7.2-11.7); RBC 3.59 Mil/uL (3.80-5.20); RED CELL DISTRIBUTION WIDTH 20.5 % (11.5-14.5); WHITE BLOOD COUNT 10.4 K/uL (4.8-10.8)
[2018-06-15 07:43] LABS: CALCIUM 8.1 mg/dl (8.6-10.4)
[2018-06-15] MEDS ORDERED: Potassium Chloride 20 mEq/15 ml LIQ UD PO STA (10:07)
[2018-06-15] MEDS: Metoprolol Succinate 25 mg XL Tab PO SCH (10:09)
[2018-06-15] MEDS: Vitamins A & D Oint UD Foilpak TOP PRN (10:10)
--- NOTE | 2018-06-15 22:49 | CP.PCM.PN ---
Subjective - Subjective Subjective: dictated Objective - Vital Signs/Intake and Output Vital Signs (last 24 hours): Temp Pulse Resp BP Pulse Ox 97.2 F L 76 20 148/88 97 06/15/18 15:00 06/15/18 15:00 06/15/18 15:00 06/15/18 15:00 06/15/18 15:00 Intake and Output: 06/15/18 06/16/18 18:59 06:59 Intake Total 480 Balance 480 - Medications Medications: Current Medications Acetaminophen (Tylenol 325mg Tab) 650 mg PO Q6 PRN PRN Reason: Headache Last Admin: 06/15/18 15:05 Dose: 650 mg Linezolid (Zyvox 600mg/300ml D5w) 600 mg in 300 mls @ 200 mls/hr IVPB Q12H [facility]; Protocol Stop: 06/18/18 17:01 Last Admin: 06/15/18 16:25 Dose: 200 mls/hr Metoprolol Succinate (Toprol Xl) 25 mg PO DAILY [facility] Last Admin: 06/15/18 10:09 Dose: 25 mg Morphine Sulfate (Morphine) 2 mg IVP Q6H PRN PRN Reason: Pain, moderate (4-7) Last Admin: 06/14/18 13:27 Dose: 2 mg Vitamin A (Vitamin A & D Oint Ud Foilpak) 1 ea TOP BID PRN PRN Reason: Dry skin Last Admin: 06/15/18 10:10 Dose: 1 ea - Labs Labs: 06/15/18 07:12 06/15/18 07:12 PT 15.0 SECONDS (9.7-12.2) H 06/07/18 14:03 INR 1.4 06/07/18 14:03 APTT 24 SECONDS (21-34) 06/07/18 14:03
--- NOTE | 2018-06-16 04:10 | PN ---
DATE: 06/15/2018 SUBJECTIVE: The patient feels better. Decreased abdominal pain. No fever. No nausea or vomiting. She is tolerating diet better. Her hemoglobin is improving. PHYSICAL EXAMINATION: VITAL SIGNS: Blood pressure 150/92, pulse 76, respiratory rate 20, temperature 97.2. LUNGS: Clear. No rales or rhonchi. CARDIOVASCULAR SYSTEM: S1 and S2 regular. ABDOMEN: Soft. ASSESSMENT: 1. Urinary tract infection due to vancomycin-resistant Enterococcus. 2. Hypokalemia. 3. Pancytopenia due to chemotherapy. 4. Urinary bladder cancer. PLAN: Continue Zyvox. Repeat urinalysis. Monitor the patient. Jensen Hernandez MD
[2018-06-16] MEDS: Linezolid 600 mg in D5W 300 ml 600 MG/300 ML BAG IVPB SCH (04:37)
[2018-06-16 08:37] LABS: SQUAMOUS EPITHIAL < 1 /hpf (0-5); URINE BACTERIA OCC (<OCC); URINE BILIRUBIN NEGATIVE (NEGATIVE); URINE BLOOD 2+ (NEGATIVE); URINE CLARITY Hazy (Clear); URINE COLOR Yellow (YELLOW); URINE GLUCOSE (UA) NORMAL (Normal); URINE LEUKOCYTE ESTERASE 3+ Leu/uL (Negative); URINE PROTEIN 2+ mg/dL (NEGATIVE); URINE UROBILINOGEN NORMAL mg/dL (0.2-1.0); WBC CLUMPS FEW /hpf
[2018-06-16] MEDS: Metoprolol Succinate 25 mg XL Tab PO SCH (09:02)
--- NOTE | 2018-06-16 13:50 | CP.PCM.PN ---
Subjective - Date & Time of Evaluation Date of Evaluation: 06/16/18 Time of Evaluation: 07:00 - Subjective Subjective: Has VRE urine IV rx adjusted Objective - Vital Signs/Intake and Output Vital Signs (last 24 hours): Temp Pulse Resp BP Pulse Ox 97.3 F L 84 20 121/74 95 06/16/18 07:00 06/16/18 07:00 06/16/18 07:00 06/16/18 07:00 06/16/18 07:00 Intake and Output: 06/16/18 06/16/18 06:59 18:59 Intake Total 660 1140 Output Total 600 Balance 60 1140 - Medications Medications: Current Medications Acetaminophen (Tylenol 325mg Tab) 650 mg PO Q6 PRN PRN Reason: Headache Last Admin: 06/15/18 23:44 Dose: 650 mg Linezolid (Zyvox 600mg/300ml D5w) 600 mg in 300 mls @ 200 mls/hr IVPB Q12H [facility]; Protocol Stop: 06/18/18 17:01 Last Admin: 06/16/18 04:37 Dose: 200 mls/hr Metoprolol Succinate (Toprol Xl) 25 mg PO DAILY [facility] Last Admin: 06/16/18 09:02 Dose: 25 mg Vitamin A (Vitamin A & D Oint Ud Foilpak) 1 ea TOP BID PRN PRN Reason: Dry skin Last Admin: 06/15/18 10:10 Dose: 1 ea - Labs Labs: 06/15/18 07:12 06/15/18 07:12 PT 15.0 SECONDS (9.7-12.2) H 06/07/18 14:03 INR 1.4 06/07/18 14:03 APTT 24 SECONDS (21-34) 06/07/18 14:03 - Constitutional Appears: Non-toxic, Chronically Ill - Head Exam Head Exam: NORMOCEPHALIC - Eye Exam Eye Exam: absent: Scleral icterus - ENT Exam ENT Exam: Mucous Membranes Dry - Neck Exam Neck Exam: absent: Lymphadenopathy - Respiratory Exam Respiratory Exam: Decreased Breath Sounds - Cardiovascular Exam Cardiovascular Exam: REGULAR RHYTHM - GI/Abdominal Exam GI & Abdominal Exam: Distended, Soft - Rectal Exam Rectal Exam: Deferred Assessment and Plan (1) Bladder cancer Status: Acute (2) Pancytopenia Status: Acute - Assessment and Plan (Free Text) Assessment: cont rx for 7 days
--- NOTE | 2018-06-16 20:11 | CP.PCM.PN ---
Subjective - Subjective Subjective: dictated Objective - Vital Signs/Intake and Output Vital Signs (last 24 hours): Temp Pulse Resp BP Pulse Ox 97.8 F 67 20 117/81 95 06/16/18 15:00 06/16/18 15:00 06/16/18 15:00 06/16/18 15:00 06/16/18 15:00 Intake and Output: 06/16/18 06/17/18 18:59 06:59 Intake Total 1140 Balance 1140 - Medications Medications: Current Medications Acetaminophen (Tylenol 325mg Tab) 650 mg PO Q6 PRN PRN Reason: Headache Last Admin: 06/16/18 14:29 Dose: 650 mg Linezolid (Zyvox) 600 mg PO Q12H DYLAN Stop: 06/18/18 17:01 Last Admin: 06/16/18 18:39 Dose: 600 mg Metoprolol Succinate (Toprol Xl) 25 mg PO DAILY DYLAN Last Admin: 06/16/18 09:02 Dose: 25 mg Vitamin A (Vitamin A & D Oint Ud Foilpak) 1 ea TOP BID PRN PRN Reason: Dry skin Last Admin: 06/15/18 10:10 Dose: 1 ea - Labs Labs: 06/15/18 07:12 06/15/18 07:12 PT 15.0 SECONDS (9.7-12.2) H 06/07/18 14:03 INR 1.4 06/07/18 14:03 APTT 24 SECONDS (21-34) 06/07/18 14:03
--- NOTE | 2018-06-17 01:52 | PN ---
DATE: 06/16/2018 SUBJECTIVE: The patient is afebrile. No shortness of breath. Decreased abdominal pain. No nausea or vomiting. The patient's labs are improving. PHYSICAL EXAMINATION: VITAL SIGNS: Blood pressure 117/81, pulse 67, respiratory rate 20, and temperature 97.8. LUNGS: Clear. CARDIOVASCULAR SYSTEM: S1 and S2, regular. ABDOMEN: Soft. ASSESSMENT: 1. 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 2. Urinary bladder cancer. 3. Hypertension. PLAN: Continue current medications. Monitor the patient. Jensen Hernandez MD
[2018-06-17] MEDS: Metoprolol Succinate 25 mg XL Tab PO SCH (10:00)
[2018-06-17 10:24] VITALS: BP 117/66; PULSE 73; RESP 20; TEMP 98.3; O2SAT 99
--- NOTE | 2018-06-17 11:01 | CP.PCM.PN ---
Subjective - Date & Time of Evaluation Date of Evaluation: 06/17/18 Time of Evaluation: 10:07 - Subjective Subjective: Code star called at 10:07a due to a reported fall by the patient (not witnessed). Patient seen and examined. Patient found in bed without any trauma. She states that she slid out of bed and bumped her R thigh on the plastic of the bed. Denies any head trauma or LOC. Motion testing completed. Patient is able to ambulate without any pain. Attending notified by RN Physical exam: Gen: no acute distress, AAOx2 (not oriented to year) HEENT: atraumatic, normocephalic, MMM PULM: CTA b/l Cardio: RRR, S1, S2 Extremities: no edema or lesions. Skin: No laceration visible PGY3 Resident - Osmin Cortes Objective - Vital Signs/Intake and Output Vital Signs (last 24 hours): Temp Pulse Resp BP Pulse Ox 98.3 F 73 20 117/66 99 06/17/18 10:10 06/17/18 10:10 06/17/18 10:10 06/17/18 10:10 06/17/18 10:10 Intake and Output: 06/17/18 06/17/18 06:59 18:59 Intake Total 120 Balance 120 - Medications Medications: Current Medications Acetaminophen (Tylenol 325mg Tab) 650 mg PO Q6 PRN PRN Reason: Headache Last Admin: 06/16/18 14:29 Dose: 650 mg Linezolid (Zyvox) 600 mg PO Q12H [facility] Stop: 06/18/18 17:01 Last Admin: 06/17/18 05:10 Dose: Not Given Metoprolol Succinate (Toprol Xl) 25 mg PO DAILY [facility] Last Admin: 06/16/18 09:02 Dose: 25 mg Vitamin A (Vitamin A & D Oint Ud Foilpak) 1 ea TOP BID PRN PRN Reason: Dry skin Last Admin: 06/15/18 10:10 Dose: 1 ea - Labs Labs: 06/15/18 07:12 06/15/18 07:12 PT 15.0 SECONDS (9.7-12.2) H 06/07/18 14:03 INR 1.4 06/07/18 14:03 APTT 24 SECONDS (21-34) 06/07/18 14:03
[2018-06-17 11:34] LABS: BASO # 0.1 K/uL (0.0-0.2); BASO % 0.5 % (0.0-2.0); EOS % 0.1 % (0.0-4.0); HEMOGLOBIN 10.5 g/dL (11.0-16.0); LYMPH # 1.6 K/uL (1.0-4.3); LYMPH % 15.8 % (20.0-40.0); MEAN CELL VOLUME 80.2 fL (81.0-99.0); MEAN CORPUSCULAR HEMOGLOBIN 25.9 pg (27.0-31.0); MEAN CORPUSCULAR HGB CONC 32.3 g/dL (33.0-37.0); MEAN PLATELET VOLUME 8.2 fL (7.2-11.7); MONO # 0.6 K/uL (0.0-0.8); MONO % 5.5 % (0.0-10.0); NEUT % 78.1 % (50.0-75.0); RBC 4.05 Mil/uL (3.80-5.20); RED CELL DISTRIBUTION WIDTH 20.5 % (11.5-14.5); WHITE BLOOD COUNT 10.2 K/uL (4.8-10.8)
[2018-06-17 11:53] LABS: CALCIUM 8.8 mg/dl (8.6-10.4)
--- NOTE | 2018-06-17 13:52 | CP.PCM.PN ---
Subjective - Date & Time of Evaluation Date of Evaluation: 06/17/18 Time of Evaluation: 13:00 - Subjective Subjective: Patient seen today denies any abdominal pain, sob, dysuria states burning upon urination improved , denies any N/V/D a febrile labs and vss - reviewed - stable , wbc - WNL oob ambulating the hallway, gait steady Objective - Vital Signs/Intake and Output Vital Signs (last 24 hours): Temp Pulse Resp BP Pulse Ox 98.3 F 73 20 117/66 99 06/17/18 10:10 06/17/18 10:10 06/17/18 10:10 06/17/18 10:10 06/17/18 10:10 Intake and Output: 06/17/18 06/17/18 06:59 18:59 Intake Total 120 Balance 120 - Medications Medications: Current Medications Acetaminophen (Tylenol 325mg Tab) 650 mg PO Q6 PRN PRN Reason: Headache Last Admin: 06/17/18 13:26 Dose: 650 mg Linezolid (Zyvox) 600 mg PO Q12H DYLAN Stop: 06/18/18 17:01 Last Admin: 06/17/18 05:10 Dose: Not Given Metoprolol Succinate (Toprol Xl) 25 mg PO DAILY DYLAN Last Admin: 06/17/18 10:00 Dose: 25 mg Vitamin A (Vitamin A & D Oint Ud Foilpak) 1 ea TOP BID PRN PRN Reason: Dry skin Last Admin: 06/15/18 10:10 Dose: 1 ea - Labs Labs: 06/17/18 11:21 06/17/18 11:21 PT 15.0 SECONDS (9.7-12.2) H 06/07/18 14:03 INR 1.4 06/07/18 14:03 APTT 24 SECONDS (21-34) 06/07/18 14:03
--- NOTE | 2018-06-17 15:08 | PCM.URO ---
Urology Progress Note - Objective Lab Results Last 24 Hours: Laboratory Results - last 24 hr 06/17/18 06/17/18 11:21 11:21 WBC 10.2 RBC 4.05 Hgb 10.5 L Hct 32.5 L MCV 80.2 L MCH 25.9 L MCHC 32.3 L RDW 20.5 H Plt Count 400 D MPV 8.2 Neut % (Auto) 78.1 H Lymph % (Auto) 15.8 L [place] % (Auto) 5.5 Eos % (Auto) 0.1 Baso % (Auto) 0.5 Neut # (Auto) 8.0 H Lymph # (Auto) 1.6 [place] # (Auto) 0.6 Eos # (Auto) 0.0 Baso # (Auto) 0.1 Sodium 133 Potassium 4.0 Chloride 94 L Carbon Dioxide 24 Anion Gap 18 BUN 16 Creatinine 1.4 H Est GFR ( Amer) 44 Est GFR (Non-Af Amer) 36 Random Glucose 103 Calcium 8.8 Intake & Output: Intake & Output 06/16/18 06/17/18 06/17/18 18:59 06:59 18:59 Intake Total 1140 120 Balance 1140 120 Weight 82 lb 82 lb Intake: Intake, IV Amount 300 Left Forearm 300 Oral 840 120 Other: # Voids Urine, Voided 2 4 # Bowel Movements 0 Vital Signs: Vital Signs - 24 hr 06/16/18 06/17/18 06/17/18 23:20 08:20 10:10 Temperature 97.2 F L 97.6 F 98.3 F Pulse Rate 96 H 72 73 Respiratory 20 18 20 Rate Blood Pressure 114/66 130/88 117/66 O2 Sat by Pulse 97 96 99 Oximetry
--- NOTE | 2018-06-17 22:27 | CP.PCM.DIS ---
Provider - Provider Date of Admission: 06/07/18 16:35 Attending physician: Jensen Hernandez MD Consults: 06/07/18 16:37 Physician Consult Stat Comment: bladder CA Consulting Provider: Elham Oshea Consulting Physician: Elham Oshea Reason for Consult: urology 06/07/18 16:38 Physician Consult Stat Comment: hem/onc` Consulting Provider: Jewel Proctor Consulting Physician: Jewel Proctor Reason for Consult: bladder CA 06/07/18 18:48 Infectious Disease Consult Routine Comment: Consulting Provider: Serg Ocasio Consulting Physician: Serg Ocasio Reason for Consult: sepsis Hospital Course - Lab Results Lab Results: Micro Results 06/12/18 20:16 Urine,Clean Catch Urine Culture - Final Vancomycin Resistant E.faecium 06/10/18 14:39 Urine,Clean Catch Urine Culture - Final Vancomycin Resistant E.faecium 06/07/18 14:15 Blood Blood Culture - Final NO GROWTH AFTER 5 DAYS 06/07/18 14:15 Blood Gram Stain - Final TEST NOT PERFORMED 06/07/18 13:45 Blood Blood Culture - Final NO GROWTH AFTER 5 DAYS 06/07/18 13:45 Blood Gram Stain - Final TEST NOT PERFORMED Most Recent Lab Values WBC 10.2 K/uL (4.8-10.8) 06/17/18 11:21 RBC 4.05 Mil/uL (3.80-5.20) 06/17/18 11:21 Hgb 10.5 g/dL (11.0-16.0) L 06/17/18 11:21 Hct 32.5 % (34.0-47.0) L 06/17/18 11:21 MCV 80.2 fL (81.0-99.0) L 06/17/18 11:21 MCH 25.9 pg (27.0-31.0) L 06/17/18 11:21 MCHC 32.3 g/dL (33.0-37.0) L 06/17/18 11:21 RDW 20.5 % (11.5-14.5) H 06/17/18 11:21 Plt Count 400 K/uL (130-400) D 06/17/18 11:21 MPV 8.2 fL (7.2-11.7) 06/17/18 11:21 Neut % (Auto) 78.1 % (50.0-75.0) H 06/17/18 11:21 Lymph % (Auto) 15.8 % (20.0-40.0) L 06/17/18 11:21 [place] % (Auto) 5.5 % (0.0-10.0) 06/17/18 11:21 Eos % (Auto) 0.1 % (0.0-4.0) 06/17/18 11:21 Baso % (Auto) 0.5 % (0.0-2.0) 06/17/18 11:21 Neut # (Auto) 8.0 K/uL (1.8-7.0) H 06/17/18 11:21 Lymph # (Auto) 1.6 K/uL (1.0-4.3) 06/17/18 11:21 [place] # (Auto) 0.6 K/uL (0.0-0.8) 06/17/18 11:21 Eos # (Auto) 0.0 K/uL (0.0-0.7) 06/17/18 11:21 Baso # (Auto) 0.1 K/uL (0.0-0.2) 06/17/18 11:21 Neutrophils % (Manual) 34 % (50-75) L 06/07/18 14:01 Band Neutrophils % 17 % (0-2) H* 06/07/18 14:01 Lymphocytes % (Manual) 31 % (20-40) 06/07/18 14:01 Monocytes % (Manual) 18 % (0-10) H 06/07/18 14:01 Nucleated RBC % 19 % (0-0) H 06/07/18 14:01 Differential Comment 06/15/18 07:12 Platelet Estimate Markedly decreased (NORMAL) L 06/07/18 14:01 Polychromasia Slight 06/07/18 14:01 Hypochromasia (manual) Slight 06/07/18 14:01 Anisocytosis (manual) Slight 06/07/18 14:01 Target Cells Slight 06/07/18 14:01 Ovalocytes Slight 06/07/18 14:01 Smear Path Review 06/07/18 14:01 PT 15.0 SECONDS (9.7-12.2) H 06/07/18 14:03 INR 1.4 06/07/18 14:03 APTT 24 SECONDS (21-34) 06/07/18 14:03 pO2 34 mm/Hg (30-55) 06/07/18 16:09 VBG pH 7.33 (7.32-7.43) 06/07/18 16:09 VBG pCO2 39 mmHg (40-60) L 06/07/18 16:09 VBG HCO3 20.1 mmol/L 06/07/18 16:09 VBG Total CO2 21.8 mmol/L (22-28) L 06/07/18 16:09 VBG O2 Sat (Calc) 56.6 % (40-65) 06/07/18 16:09 VBG Base Excess -4.9 mmol/L (0.0-2.0) L 06/07/18 16:09 VBG Potassium 3.8 mmol/L (3.6-5.2) 06/07/18 16:09 Sodium 139.0 mmol/l (132-148) 06/07/18 16:09 Chloride 107.0 mmol/L (98-107) 06/07/18 16:09 Glucose 103 mg/dl (65-105) 06/07/18 16:09 Lactate 3.3 mmol/L (0.7-2.1) H 06/07/18 16:09 Crit Value Called To jayla Martini 06/07/18 14:13 Crit Value Called By Casimiro steve rrt 06/07/18 14:13 Crit Value Read Back Y 06/07/18 14:13 Blood Gas Notified Time 1416 06/07/18 14:13 Sodium 133 mmol/L (132-148) 06/17/18 11:21 Potassium 4.0 mmol/L (3.6-5.2) 06/17/18 11:21 Chloride 94 mmol/L (98-107) L 06/17/18 11:21 Carbon Dioxide 24 mmol/L (22-30) 06/17/18 11:21 Anion Gap 18 (10-20) 06/17/18 11:21 BUN 16 mg/dL (7-17) 06/17/18 11:21 Creatinine 1.4 mg/dL (0.7-1.2) H 12/10/18 11:21 Est GFR ( Amer) 44 06/17/18 11:21 Est GFR (Non-Af Amer) 36 06/17/18 11:21 Random Glucose 103 mg/dL (65-105) 06/17/18 11:21 Calcium 8.8 mg/dl (8.6-10.4) 06/17/18 11:21 Total Bilirubin 0.3 mg/dL (0.2-1.3) 06/09/18 08:10 AST 18 U/L (14-36) 06/09/18 08:10 ALT 21 U/L (9-52) 06/09/18 08:10 Alkaline Phosphatase 107 U/L (38-126) 06/09/18 08:10 Total Protein 5.5 g/dL (6.3-8.3) L 06/09/18 08:10 Albumin 2.4 g/dL (3.5-5.0) L D 06/09/18 08:10 Globulin 3.1 gm/dL (2.2-3.9) 06/09/18 08:10 Albumin/Globulin Ratio 0.8 (1.0-2.1) L 06/09/18 08:10 Venous Blood Potassium 3.8 mmol/L (3.6-5.2) 06/07/18 16:09 Urine Color Yellow (YELLOW) 06/16/18 08:12 Urine Clarity Hazy (Clear) 06/16/18 08:12 Urine pH 8.0 (5.0-8.0) 06/16/18 08:12 Ur Specific [place] 1.012 (1.003-1.030) 06/16/18 08:12 Urine Protein 2+ mg/dL (NEGATIVE) H 06/16/18 08:12 Urine Glucose (UA) Normal mg/dL (Normal) 06/16/18 08:12 Urine Ketones Negative mg/dL (NEGATIVE) 06/16/18 08:12 Urine Blood 2+ (NEGATIVE) H 06/16/18 08:12 Urine Nitrate Negative (NEGATIVE) 06/16/18 08:12 Urine Bilirubin Negative (NEGATIVE) 06/16/18 08:12 Urine Urobilinogen Normal mg/dL (0.2-1.0) 06/16/18 08:12 Ur Leukocyte Esterase 3+ [place]oise/uL (Negative) H 06/16/18 08:12 Urine WBC (Auto) 743 /hpf (0-5) H 06/16/18 08:12 Urine RBC (Auto) 13 /hpf (0-3) H 06/16/18 08:12 Urine WBC Clumps (Auto) Few /hpf (NONE) H 06/16/18 08:12 Ur Squamous Epith Cells < 1 /hpf (0-5) 06/16/18 08:12 Urine Bacteria Occ (<OCC) H 06/16/18 08:12 C. difficile Ag & Toxin Negative (NEGATIVE) 06/10/18 14:39 Blood Type O POSITIVE 06/09/18 11:09 Antibody Screen Negative 06/09/18 11:09 Discharge Exam - Head Exam Head Exam: NORMOCEPHALIC Discharge Plan - Discharge Medications Prescriptions: Metoprolol Succinate XL [Toprol XL] 25 mg PO DAILY #30 tab Linezolid [Zyvox] 600 mg PO Q12H #14 tab - Follow Up Plan Condition: GOOD Disposition: HOME/ ROUTINE Instructions: Dehydration, Adult (DC), Sepsis, Adult (DC), Linezolid, Meto prolol Additional Instructions: Please follow up with Dr. Hernandez office in 1 week Please continue zyvox x 7 days Please follow up with Dr. Proctor office this week continue medication as per med. rec. PLEASE [employer] [facility] MEDICATION FROM [facility] Referrals: Jensen Hernandez MD [Staff Provider] - Jewel Proctor MD [Staff Provider] -
--- NOTE | 2018-06-18 05:33 | DS ---
DISCHARGE DIAGNOSES: 1. Urinary tract infection due to vancomycin-resistant enterococcus. 2. Urinary bladder cancer. 3. Hypertension. 4. Pancytopenia due to chemotherapy. HISTORY OF PRESENT ILLNESS: This is a 77-year-old female with a history of urinary bladder cancer, being followed up by Urology and Hematology/Oncology with chemotherapy for her urinary bladder cancer every two weeks. She is compliant with her diet, medications, and followup. She came in on the day of admission with fever, chills, rigors, pancytopenia, positive urinary symptoms. The patient was admitted to the floor, and she was started on treatment. Urine grew vancomycin-resistant enterococcus. The patient was started on Zyvox. She is being discharged with Zyvox oral for one week. Condition upon discharge is stable. PHYSICAL EXAMINATION: VITAL SIGNS: Blood pressure 117/66, pulse 73, respiratory rate 20, and temperature 98.3. LUNGS: Clear. CARDIOVASCULAR SYSTEM: S1 and S2 are regular. ABDOMEN: Soft. LABORATORY DATA: WBC 10.2, hemoglobin 10.4, hematocrit 32.4, and platelets 400. Sodium 133, potassium 4, chloride 94, bicarb 24, BUN 16, and creatinine 1.4. CONDITION UPON DISCHARGE: Stable. Jensen Hernandez MD
== END 2018-06-17 16:08 | disposition home or self-care (01) | DRG 689 ==
LOC: C.ER 12:03 → C.9E 16:35 → C.6T 17:34
PROVIDERS: ADMIT Internal Medicine; ATTEND Internal Medicine
DX: N39.0 Urinary tract infection, site not specified (principal); D61.810 Antineoplastic chemotherapy induced pancytopenia; N18.9 Chronic kidney disease, unspecified; J45.909 Unspecified asthma, uncomplicated; I12.9 Hypertensive chronic kidney disease with stage 1 through stage 4 chronic kidney disease, or unspecified chronic kidney disease; E87.6 Hypokalemia; E86.0 Dehydration; B95.2 Enterococcus as the cause of diseases classified elsewhere; C67.9 Malignant neoplasm of bladder, unspecified; T45.1X5A Adverse effect of antineoplastic and immunosuppressive drugs, initial encounter; Z16.21 Resistance to vancomycin; Z87.891 Personal history of nicotine dependence; Z92.3 Personal history of irradiation; Z95.1 Presence of aortocoronary bypass graft